=== PATIENT | female | born 1970 | race Caucasian/White ===

== ENCOUNTER 2016-07-03 17:14 | Emergency (ER) | payer MEDICARE, OTHER ==
[2016-07-03] MEDS ORDERED: SODIUM CHLORIDE 0.9% 1,000 ML IV ONE ×2 (17:39→18:27)
== END 2016-07-03 21:48 | disposition home or self-care (01) ==
DX: E10.43 Type 1 diabetes mellitus with diabetic autonomic (poly)neuropathy (principal); K31.84 Gastroparesis; Z79.4 Long term (current) use of insulin; E86.0 Dehydration; R91.8 Other nonspecific abnormal finding of lung field; R41.82 Altered mental status, unspecified; Z86.73 Personal history of transient ischemic attack (TIA), and cerebral infarction without residual deficits; I48.91 Unspecified atrial fibrillation; Z79.82 Long term (current) use of aspirin
CPT/HCPCS: 36415; 70450; 71020; 80053; 80306; 80307; 81003; 83690; 85025; 96360; 96361; 99284; G0480

== ENCOUNTER 2017-01-01 14:09 | Outpatient (CLI) | payer MEDICARE, OTHER ==
[2017-01-02] MEDS ORDERED: IOPAMIDOL-300 50 ML VIAL PO ONE (17:12)
== END 2017-01-01 14:10 | disposition critical access hospital (66) ==
LOC: EMS 14:09
PROVIDERS: ATTEND Surgery
DX: R53.83 Other fatigue (principal)
CPT/HCPCS: A0425; A0429

== ENCOUNTER 2017-01-01 14:23 | Inpatient (IN) | payer MEDICARE, OTHER ==
[2017-01-01] MEDS ORDERED: SODIUM CHLORIDE 0.9% 1,000 ML IV ONE ×4 (14:44→15:25)
--- NOTE | 2017-01-01 14:47 | ED Physician Documentation ---
History of Present Illness - Stated complaint Stated Complaint: COUGHING BLOOD - Chief complaint Chief Complaint: Resp - History obtained from History obtained from: Patient, Family, EMS - History of Present Illness Timing: How many weeks ago (3) Pain level max: 0 Pain level now: 0 Improved by: nothing Worsened by: nothing - Additonal information Additional information: Patient is a 46-year-old female who presents to the emergency department with 3 weeks of cough, subjective fevers. States that last night she began to cough up a small amount of blood at home. This is scant, dark. She also states that her stools were orange in color. States has had mild diarrhea. Blood sugars have been poorly controlled with blood glucose levels around 350. Her daughter states that she has been sleeping more than usual. Review of Systems Ten Systems: 10 systems reviewed and negative Constitutional: reports: Fever, Chills Ears: denies: Ear pain Nose: denies: Rhinorrhea / runny nose, Congestion Throat: denies: Sore throat Cardiac: denies: Chest pain / pressure Respiratory: reports: Cough. denies: Wheezing GI: denies: Nausea, Vomiting, Hematemesis, Bloody / black stool Skin: denies: Rash Musculoskeletal: denies: Neck pain, Back pain Neurologic: denies: Focal weakness, Numbness, Headache PD PAST MEDICAL HISTORY - Past Medical History Past Medical History: Yes Cardiovascular: Atrial fibrillation Respiratory: None Neuro: TIA Endocrine/Autoimmune: Type 1 diabetes GI: GERD, Ulcers, Other INVESTMENT BANKER: None : None HEENT: None Psych: Depression, Anxiety, Panic attacks, Post traumatic stress disorder Musculoskeletal: None Derm: None - Past Surgical History Past Surgical History: Yes General: Cholecystectomy, Appendectomy Ortho: Carpal Tunnel surgery /INVESTMENT BANKER: Hysterectomy, Oophrectomy Cardiovascular: Cardiac catheterization HEENT: Tonsil/Adenoidectomy - Present Medications Home Medications: Ambulatory Orders Medication Instructions Recorded Confirmed Insulin Aspart [Novolog] 10 - 15 unit SQ QID PRN 10/26/12 01/01/17 Insulin Glargine [Lantus] 18 unit SUBQ QAM 12/09/12 01/01/17 Estradiol [Divigel] 2 mg ORAL DAILY 10/10/13 01/01/17 FLUoxetine [PROzac] 40 mg PO QPM 10/10/13 01/01/17 Aspirin 81 tab PO DAILY 03/27/16 01/01/17 oxyCODONE [Roxicodone] 1 tab TID 07/03/16 01/01/17 - Allergies Allergies/Adverse Reactions: Allergies Allergy/AdvReac Type Severity Reaction Status Date / Time acetaminophen [From Tylenol] Allergy Intermediate Emesis Verified 01/01/17 14:36 iodine AdvReac Severe passed out Verified 01/01/17 14:36 simvastatin [From Zocor] AdvReac Severe bone Verified 01/01/17 14:36 hurting - Social History Does the pt smoke?: No Smoking Status: Never smoker Does the pt drink ETOH?: No Does the pt have substance abuse?: No - Immunizations Immunizations are current?: No Immunizations: Other immun not current - POLST Patient has POLST: No PD ED PE NORMAL - Vitals Vital signs reviewed: Yes - General General: Alert and oriented X 3, No acute distress - HEENT HEENT: Moist mucous membranes - Neck Neck: Supple, no meningeal sign - Cardiac Cardiac: RRR, Strong equal pulses - Respiratory Respiratory: No respiratory distress, Clear bilaterally - Abdomen Abdomen: Soft, Non tender, Non distended - Rectal Rectal: Other (normal rectal exam. hemoccult negative. Verona Dyson RN present) - Derm Derm: Warm and dry, No rash - Neuro Neuro: Alert and oriented X 3 - Psych Psych: Normal mood, Normal affect Results - Vitals Vitals: Vital Signs - 24 hr 01/01/17 01/01/17 01/01/17 14:25 14:30 14:32 Temperature 37.7 C H Heart Rate 113 H 117 H 111 H Respiratory 24 26 H 23 Rate Blood Pressure 130/83 H O2 Saturation 95 88 L 92 01/01/17 01/01/17 01/01/17 15:00 15:01 15:02 Temperature Heart Rate 108 H 114 H Respiratory 20 22 24 Rate Blood Pressure O2 Saturation 1 L 89 L 92 01/01/17 01/01/17 01/01/17 16:30 18:24 19:15 Temperature Heart Rate 111 H 115 H 111 H Respiratory 28 H 22 Rate Blood Pressure 151/60 H O2 Saturation 96 94 Oxygen O2 Source Nasal cannula Oxygen Flow Rate 2 - Labs Labs: Laboratory Tests 01/01/17 01/01/17 01/01/17 15:30 15:30 15:30 WBC 19.2 H RBC 3.74 L Hgb 10.9 L Hct 32.7 L MCV 87.6 MCH 29.1 MCHC 33.2 RDW 14.7 Plt Count 223 MPV 8.4 Neut # 17.8 H Lymph # 0.8 L [place] # 0.5 Eos # 0.0 Baso # 0.1 Absolute Nucleated RBC 0.00 Nucleated RBCs 0.0 Manual Slide Review Indicated Platelet Estimate NORMAL (130-450,000) Platelet Morphology NORMAL APPEARANCE RBC Morph Micro Appear NORMAL APPEARANCE Sodium 125 L Potassium 4.0 Chloride 88 L Carbon Dioxide 24 Anion Gap 13.0 BUN 13 Creatinine 0.9 Estimated GFR (MDRD) 67 L Glucose 358 H Glycated Hemoglobin Estim Average Glucose Lactic Acid 1.7 Calcium 8.6 Total Bilirubin 4.6 H AST 35 ALT 44 Alkaline Phosphatase 197 H Total Protein 6.5 L Albumin 2.4 L Globulin 4.1 Albumin/Globulin Ratio 0.6 L Lipase < 10 L Urine Color Urine Clarity Urine pH Ur Specific [place] Urine Protein Urine Glucose (UA) Urine Ketones Urine Occult Blood Urine Nitrite Urine Bilirubin Urine Urobilinogen Ur Leukocyte Esterase Urine RBC Urine WBC Ur Squamous Epith Cells Urine Bacteria Ur Microscopic Review Urine Culture Comments 01/01/17 01/01/17 15:30 17:00 WBC RBC Hgb Hct MCV MCH MCHC RDW Plt Count MPV Neut # Lymph # [place] # Eos # Baso # Absolute Nucleated RBC Nucleated RBCs Manual Slide Review Platelet Estimate Platelet Morphology RBC Morph Micro Appear Sodium Potassium Chloride Carbon Dioxide Anion Gap BUN Creatinine Estimated GFR (MDRD) Glucose Glycated Hemoglobin 9.2 H Estim Average Glucose 217 H Lactic Acid Calcium Total Bilirubin AST ALT Alkaline Phosphatase Total Protein Albumin Globulin Albumin/Globulin Ratio Lipase Urine Color YELLOW Urine Clarity CLEAR Urine pH 5.5 Ur Specific [place] 1.015 Urine Protein 30 H Urine Glucose (UA) >=1000 H Urine Ketones >=80 H Urine Occult Blood SMALL H Urine Nitrite NEGATIVE Urine Bilirubin MODERATE H Urine Urobilinogen 1 (NORMAL) Ur Leukocyte Esterase NEGATIVE Urine RBC 0-5 Urine WBC 0-3 Ur Squamous Epith Cells FEW Squamous Urine Bacteria Rare Ur Microscopic Review INDICATED Urine Culture Comments NOT INDICATED - Rads (name of study) cxr Radiology: Prelim report reviewed, EMP read contemporaneously, See rad report ( Lung volumes and heart size are within normal limits. There is dense opacity within the right chest. This is suspicious for pneumonia. Interval follow-up film post treatment is recommended to demonstrate resolution of this process and to exclude underlying pathology. No evidence of pneumothorax. ) PD MEDICAL DECISION MAKING - ED course Complexity details: reviewed results, re-evaluated patient, considered differential, d/w patient, d/w it web development consultant ED course: Patient is a 46-year-old female who presents to the emergency department what appears to be pneumonia on the right side of her chest. Started on IV antibiotics, IV fluids given. Does not appear septic at this time. She is hypoxic and placed on supplemental oxygen. There was difficulty establishing IV access, therefore I placed a 20-gauge IV in the left AC under ultrasound guidance. Flushes well and withdraws blood easily. Blood cultures drawn. Discussed the case with the hospitalist who accepts ([id number]). This document was made in part using voice recognition software. While efforts are made to proofread this document, sound alike and grammatical errors may occur.q Departure - Departure Disposition: 66 [facility] DC/Xfer Clinical Impression: Hypoxia Pneumonia Qualifiers: Pneumonia type: due to unspecified organism Laterality: right Lung location: unspecified part of lung Qualified Code(s): J18.9 - Pneumonia, unspecified organism Condition: Stable Discharge Date/Time: 01/01/17 20:58
--- NOTE | 2017-01-01 15:15 | XRAY Preliminary Report ---
Exam: XR Chest 1 View IMPRESSION: 1. Lung volumes and heart size are within normal limits. 2. There is dense opacity within the right chest. This is suspicious for pneumonia. Interval follow-u p film post treatment is recommended to demonstrate resolution of this process and to exclude underly ing pathology. 3. No evidence of pneumothorax. [facility] SITE ID: [id number]
--- NOTE | 2017-01-01 15:18 | XRAY Report ---
EXAM: CHEST RADIOGRAPHY EXAM DATE: 01/01/2017 03:04 PM. CLINICAL HISTORY: Cough, fever. COMPARISON: 12/02/2015. TECHNIQUE: 1 view. FINDINGS: Lungs/Pleura: There is dense opacity within the right chest. No evidence of large effusion. No pneumo thorax. The left lung is relatively clear. Mediastinum: Within exam limitations, cardiomediastinal contour is normal. Other: None. IMPRESSION: 1. Lung volumes and heart size are within normal limits. 2. There is dense opacity within the right chest. This is suspicious for pneumonia. Interval follow-u p film post treatment is recommended to demonstrate resolution of this process and to exclude underly ing pathology. 3. No evidence of pneumothorax. [facility] Referring Provider Line: [phone] SITE ID: [id number]
[2017-01-01 15:36] LABS: BASOPHILS # (AUTO) 0.1 10^3/uL (0.0-0.1); BASOPHILS % (AUTO) 0.3 %; HCT - HEMATOCRIT 32.7 % (37.0-47.0); HGB - HEMOGLOBIN 10.9 g/dL (12.0-16.0); LYMPHOCYTES # (AUTO) 0.8 10^3/uL (1.5-3.5); LYMPHOCYTES % (AUTO) 4.2 %; MEAN CORPUSCULAR HEMOGLOBIN 29.1 pg (27.0-31.0); MEAN CORPUSCULAR HGB CONC 33.2 g/dL (32.0-36.0); MEAN CORPUSCULAR VOLUME 87.6 fL (81.0-99.0); MEAN PLATELET VOLUME 8.4 fL (7.9-10.8); MONOCYTES # (AUTO) 0.5 10^3/uL (0.0-1.0); MONOCYTES % (AUTO) 2.9 %; NEUTROPHILS # (AUTO) 17.8 10^3/uL (1.5-6.6); NEUTROPHILS % (AUTO) 92.6 %; RED BLOOD COUNT 3.74 10^6/uL (4.20-5.40); RED CELL DISTRIBUTION WIDTH 14.7 % (12.0-15.0); UNCORRECTED WHITE BLOOD COUNT 19.2 x10^3/uL; WHITE BLOOD COUNT 19.2 x10^3/uL (4.8-10.8)
[2017-01-01] MEDS ORDERED: cefTRIAXone 1 GM in SODIUM CHLORIDE 0.9% MINIBAG 100 ML IV STA (15:55)
[2017-01-01] MEDS ORDERED: AZITHROMYCIN INJ 500 MG in SODIUM CHLORIDE 0.9% 250 ML IV STA (15:55)
[2017-01-01 16:08] LABS: PLATELET ESTIMATE, MANUAL NORMAL (130-450,000) (NORMAL); PLATELET MORPHOLOGY NORMAL APPEARANCE (NORMAL)
[2017-01-01 16:17] LABS: ALBUMIN/GLOBULIN RATIO 0.6 (1.0-2.2); BILIRUBIN,TOTAL 4.6 mg/dL (0.2-1.0); BUN - BLOOD UREA NITROGEN 13 mg/dL (6-20); CALCIUM 8.6 mg/dL (8.5-10.3); CARBON DIOXIDE - CO2 24 mmol/L (21-32); CHLORIDE 88 mmol/L (101-111); CREATININE 0.9 mg/dL (0.4-1.0); GFR - MDRD 67 (>89); GLUCOSE 358 mg/dL (70-100); LIPASE < 10 U/L (22-51); SODIUM 125 mmol/L (135-145); TOTAL PROTEIN 6.5 g/dL (6.7-8.2)
[2017-01-01] MEDS ORDERED: cefTRIAXone 1 GM VIAL ONE (16:31)
[2017-01-01 17:15] LABS: PH,URINE 5.5 PH (5.0-7.5)
[2017-01-01 17:23] LABS: BILIRUBIN,URINE MODERATE (NEGATIVE); UA w/ MICROSCOPIC CHARGE YES
[2017-01-01 17:29] LABS: UR CULTURE IF IND NOT INDICATED; WBC,URINE 0-3 /HPF (0-5)
[2017-01-01] MEDS ORDERED: INSULIN REGULAR HUMAN 100 UNIT/1 ML 10 ML MDV SUBQ STA (18:31)
[2017-01-01] MEDS ORDERED: ALBUTEROL NEB 2.5 MG/3 ML INH STA (18:32)
[2017-01-01] MEDS ORDERED: INSULIN REGULAR HUMAN 100 UNIT/1 ML 10 ML MDV ONE (18:54)
[2017-01-01] MEDS ORDERED: IPRATROPIUM/ALBUTEROL 3 ML NEB INH ONE (19:22)
[2017-01-01] MEDS ORDERED: ACETAMINOPHEN 325 MG TABLET PO PRN (19:37)
[2017-01-01] MEDS ORDERED: ZOLPIDEM 5 MG TABLET PO PRN (19:37)
[2017-01-01] MEDS ORDERED: PROCHLORPERAZINE 10 MG/2 ML VIAL IVP PRN (19:37)
[2017-01-01] MEDS ORDERED: SODIUM CHLORIDE FLUSH 0.9% 10 ML SYRINGE IVP PRN (19:37)
[2017-01-01] MEDS ORDERED: ONDANSETRON 4 MG/2 ML VIAL IVP PRN (19:37)
[2017-01-01] MEDS ORDERED: ALBUTEROL NEB 2.5 MG/3 ML INH ONE (19:51)
[2017-01-01 20:19] LABS: HEMOGLOBIN A1C 0.88 g/dL
[2017-01-01] MEDS ORDERED: SODIUM CHLORIDE FLUSH 0.9% 10 ML SYRINGE IVP ONE (21:30)
[2017-01-01] MEDS: SODIUM CHLORIDE FLUSH 0.9% 10 ML SYRINGE IVP SCH (21:40)
[2017-01-01] MEDS: SODIUM CHLORIDE 0.9% 1,000 ML IV SCH (21:40)
[2017-01-01] MEDS ORDERED: INSULIN ASPART 300 UNIT/3 ML PEN SUBQ SCH (22:00)
[2017-01-01] MEDS: INSULIN ASPART 300 UNIT/3 ML PEN SUBQ SCH (22:06)
[2017-01-01] MEDS: INSULIN GLARGINE 300 UNIT/3 ML PEN SUBQ SCH (22:11)
[2017-01-01] MEDS: FLUoxetine 10 MG CAPSULE PO SCH (23:54)
[2017-01-02] MEDS: guaiFENesin/CODEINE 5 ML UDC PO PRN ×4 (05:11→20:49)
[2017-01-02] MEDS: SODIUM CHLORIDE FLUSH 0.9% 10 ML SYRINGE IVP SCH ×3 (05:20→22:00)
--- NOTE | 2017-01-02 05:27 | HISTORY & PHYSICAL EXAMINATION ---
Chief Complaint - Chief Complaint Chief Complaint: Generalized weakness and lethargy History of Present Illness - Admitted From Admitted From:: Emergency Department - History Obtained From Records Reviewed: Yes History obtained from: Patient Exam Limitations: None - History of Present Illness HPI Comment/Other: Patient is a very pleasant 46 year old female with past medical history of diabetes, paroxysmal atrial fibrillation not on anticoagulation, depression with history of suicide attempts, PTSD, anxiety, morbid obesity, fatty liver disease, hyperlipidemia, gastric ulcer disease, migraines and chronic abdominal pain who presents to the emergency department with a chief complaints of generalized weakness and lethargy which has been worsening of the last 3 days. The patient states she was in her normal state of health until a week ago when she states that she saw her PCP who changed her prozac to another antidepressant. She states that she was told with this new medication she could get flu like symptoms. Over the next few days she began to develop malaise, achy muscles, joints and a cough. She thought that this was all due to the change in her medication. She states that over the last 3 days she has began to have increasing cough which keeps her up all night and shortness of breath with exertion. She states the last 2 days she has become so weak that she has not left her bed. She states that 2 days ago when she got out of bed to go to the bathroom she fell on the floor and her daughter had to help her up. She states that today her daughter was concerned as she was very lethargic and seemed confused. The patients daughter called the patients who is away at work and the patients told the patient to go to the ER. The patient also states she has had a decreased appetite and not eaten at all for the last 2 days. She states she had a fever up to 101 and she has been experiencing chills the last few days. She denies any chest pain. She denies any headache, blurred vision, runny nose, she admits to a sore throat, she denies any abdominal pain, nausea or vomiting. She denies any urinary symptoms. She also denies any focal neurological deficits. On presentation to the Emergency Department the patient looked quite ill. She was tachycardic, tachypnic and had a low grade fever or 37.7. Her WBC was elevated to 19.2 and she had a sodium of 125 with an elevated glucose and an elevated bilirubin of 4.6 with an elevated Alk Phos. The patient had a bad cough and her lungs sounded bad so she underwent a chest xray which revealed a dense opacity in the right chest suggestive of a pneumonia. Patient was admitted to the hospital for sepsis with community acquired pneumonia. Review of Systems - Other Findings Other Findings: A comprehensive review of systems was performed the pertinent positive and negatives are stated above in the HPI and the remainder of the review of systems is negative. History - Past Medical History Cardiovascular: reports: Atrial fibrillation Respiratory: reports: None Neuro: reports: TIA Endocrine/Autoimmune: reports: Type 1 diabetes GI: reports: GERD, Ulcers, Other PANTOMIMIST: reports: None : reports: None HEENT: reports: None Psych: reports: Depression, Anxiety, Panic attacks, Post traumatic stress disorder Musculoskeletal: reports: None Derm: reports: None MRSA Hx?: No Other Past Medical History: 1. Depression with history of suicide attempts in and 06/2013. 2. PTSD. 3. Anxiety. 4. Morbid Obesity. 5. Type 2 diabetes. 6. Fatty Liver Disease. 7. Hyperlipidemia. 8. Remote hisotry of gastric ulcer disease. 9. 2 TIAs. 10. Hisotry of Atrial Fibrillation. 11. Chronic Abdominal Pain. 12. Migraine Headaches. 13. Carpal Tunnel Syndrome and release surgery. 14. Tonsillectomy. 15. Cholecystectomy. 16. Appendectomy - Past Surgical History General: reports: Cholecystectomy, Appendectomy Ortho: reports: Carpal Tunnel surgery /PANTOMIMIST: reports: Hysterectomy, Oophrectomy Cardiovascular: reports: Cardiac catheterization HEENT: reports: Tonsil/Adenoidectomy - Family & Social History Family History Comment/Other: No family history of diabetes, coronary artery disease or cancer. The patient does have some family history of psychiatric disease. Living arrangement: At home Living Situation: With spouse/s.o. Social History Notes: The patient is . She is originally from [place], [place]. Her and her live together in a home. She is very independent. Her was formerly in the [employer]. She has retired. She has 2 kids one son and one daughter. She does not smoke, she rarely drinks alcohol and she does not use any illict drugs. - Substance History Use: Uses substance without health or social issues: NONE Abuse: Recurrent use of substance despite neg consequences: NONE Dependence: Experiences withdrawal or developed tolerances: NONE - POLST Patient has POLST: No POLST Status: Full Code Meds/Allgy - Home Medications Home Medications: Ambulatory Orders Medication Instructions Recorded Confirmed Insulin Aspart [Novolog] 10 - 15 unit SQ QID PRN 10/26/12 01/01/17 Insulin Glargine [Lantus] 18 unit SUBQ QAM 12/09/12 01/01/17 Estradiol [Divigel] 2 mg ORAL DAILY 10/10/13 01/01/17 FLUoxetine [PROzac] 40 mg PO QPM 10/10/13 01/01/17 Aspirin 81 tab PO DAILY 03/27/16 01/01/17 oxyCODONE [Roxicodone] 1 tab TID 07/03/16 01/01/17 - Allergies Allergies/Adverse Reactions: Allergies Allergy/AdvReac Type Severity Reaction Status Date / Time acetaminophen [From Tylenol] Allergy Intermediate Emesis Verified 01/01/17 14:36 iodine AdvReac Severe passed out Verified 01/01/17 14:36 simvastatin [From Zocor] AdvReac Severe bone Verified 01/01/17 14:36 hurting Exam - Vital Signs Reviewed Vital Signs: Yes Vital Signs: Vital Signs x48h Temp Pulse Resp BP Pulse Ox 01/02/17 00:46 36.8 C 97 16 126/77 97 - Physical Exam General Appearance: positive: Alert, Mild distress (Coughing a lot) Eyes Bilateral: positive: Normal inspection, PERRL, EOMI, No lid inflammation, Conjunctivae nml, No scleral icterus ENT: positive: ENT inspection nml, Pharynx nml, Dry mucous membranes. negative : Purulent nasal drainage, Pharyngeal erythema, Oral lesions Neck: positive: Nml inspection, Thyroid nml, No JVD, Trachea midline. negative : Thyromegaly, Lymphadenopathy (R), Lymphadenopathy (L), Carotid bruit, Tracheal deviation Respiratory: positive: Chest non-tender, No respiratory distress, Rales (bases) , Rhonchi (right lung), Other (Not using accessory muscles of breath but lungs sound junky) Cardiovascular: positive: No murmur, No gallop, Tachycardia Peripheral Pulses: positive: 2+ Abdomen: positive: No organomegaly, Nml bowel sounds, Tenderness (Mild in the epigatric area), Other (Obese). negative: Guarding, Rebound, Bruit Back: positive: Nml inspection. negative: CVA tenderness (R), CVA tenderness (L ) Skin: positive: Color nml, No rash, Warm Extremities: positive: Non-tender, Full ROM, Nml appearance, No pedal edema Neurologic/Psychiatric: positive: Oriented x3, CN's nml (2-12), Motor nml, Sensation nml Conclusion/Plan - Problem List (1) Sepsis Conclusion/Plan: Patient presented with lethargy and generalized weakness. On presentation patient was ill appearing with low grade fever and admitted to [place] [id number] at home with chills. She was tachycardic on presentation and tachypnic. She had a leukocytosis of 19K she was found to have a right lung pneumonia. Source appears to be pneumonia but she does have some abdominal tenderness and has had a poor appetite. She had an elevated bili of 4 with elevated alk phos concerning for possible gallstone, liver disease or cholecystitis Plan: IV ceftriaxone and IV azithromycin to treat CAP IVFs Blood cultures Monitor closely Abdominal ultrasound (2) CAP (community acquired pneumonia) Conclusion/Plan: Patient presented with sepsis, cough, weakness, shortness of breath and fevers. CXR showed a dense right lung opacity concerning for pneumonia especially given clinical picture Plan: IV Ceftriaxone and IV azithromycin IVFs Blood cultures Robitussin O2 as needed Repeat CXR after treatment complete (3) Elevated bilirubin Conclusion/Plan: Patient has history of fatty liver disease and presented with generalized weakness, sepsis and poor appetite. Patient had mild abdominal tenderness and bili was elevated at over 4 and Alk phos elevated Concerning for possible gallstone, cholecystitits or worsening liver damage from fatty liver Plan: Repeat LFTs Abdominal ultrasound IVFs (4) Diabetes Conclusion/Plan: Patient with long standing diabetes presented with uncontrolled blood glucose of 358 HbA1C is 9.2 Likely worse secondary to infection Plan: Continue home dose of lantus Start on sliding scale with meals Diabetic diet Monitor blood glucose closely Qualifiers: Diabetes mellitus type: type 2 Diabetes mellitus chcf insulin use: with chcf use (5) Hyponatremia Conclusion/Plan: Na was 125 on presentation Appears to be hypovolemic hyponatremia but could be some component of SIADH given pneumonia Give IVFs Monitor Na (6) Hypertension Conclusion/Plan: Well controlled Continue home medication Qualifiers: Hypertension type: essential hypertension Qualified Code(s): I10 - Essential (primary) hypertension (7) Depression Conclusion/Plan: Mood is stable History of suicide attempts Continue home meds Monitor Qualifiers: Depression Type: major depressive disorder (8) Prophylactic use of low molecular weight heparin for venous thromboembolism Conclusion/Plan: Place on lovenox - Lab Results Lab results reviewed: Yes Fish Bones: 01/01/17 15:30 01/01/17 15:30 Other Lab Results: Laboratory Results WBC 18.6 x10^3/uL (4.8-10.8) H 01/02/17 05:23 RBC 3.42 10^6/uL (4.20-5.40) L 01/02/17 05:23 Hgb 10.0 g/dL (12.0-16.0) L 01/02/17 05:23 Hct 30.2 % (37.0-47.0) L 01/02/17 05:23 MCV 88.5 fL (81.0-99.0) 01/02/17 05:23 MCH 29.3 pg (27.0-31.0) 01/02/17 05:23 MCHC 33.2 g/dL (32.0-36.0) 01/02/17 05:23 RDW 14.6 % (12.0-15.0) 01/02/17 05:23 Plt Count 233 10^3/uL (130-450) 01/02/17 05:23 MPV 8.2 fL (7.9-10.8) 01/02/17 05:23 Neut # 16.8 10^3/uL (1.5-6.6) H 01/02/17 05:23 Lymph # 1.0 10^3/uL (1.5-3.5) L 01/02/17 05:23 [place] # 0.8 10^3/uL (0.0-1.0) 01/02/17 05:23 Eos # 0.0 10^3/uL (0.0-0.7) 01/02/17 05:23 Baso # 0.1 10^3/uL (0.0-0.1) 01/02/17 05:23 Absolute Nucleated RBC 0.01 x10^3/uL 01/02/17 05:23 Nucleated RBCs 0.1 /100WBC 01/02/17 05:23 Manual Slide Review Indicated 01/01/17 15:30 Platelet Estimate NORMAL (130-450,000) (NORMAL) 01/01/17 15:30 Platelet Morphology NORMAL APPEARANCE (NORMAL) 01/01/17 15:30 RBC Morph Micro Appear NORMAL APPEARANCE (NORMAL) 01/01/17 15:30 Sodium 125 mmol/L (135-145) L 01/01/17 15:30 Potassium 4.0 mmol/L (3.5-5.0) 01/01/17 15:30 Chloride 88 mmol/L (101-111) L 01/01/17 15:30 Carbon Dioxide 24 mmol/L (21-32) 01/01/17 15:30 Anion Gap 13.0 (6-13) 01/01/17 15:30 BUN 13 mg/dL (6-20) 01/01/17 15:30 Creatinine 0.9 mg/dL (0.4-1.0) 01/01/17 15:30 Estimated GFR (MDRD) 67 (>89) L 01/01/17 15:30 Glucose 358 mg/dL (70-100) H 01/01/17 15:30 Glycated Hemoglobin 9.2 % (4.6-6.2) H 01/01/17 15:30 Estim Average Glucose 217 (70-100) H 01/01/17 15:30 Lactic Acid 1.7 mmol/L (0.5-2.2) 01/01/17 15:30 Calcium 8.6 mg/dL (8.5-10.3) 01/01/17 15:30 Total Bilirubin 4.6 mg/dL (0.2-1.0) H 01/01/17 15:30 AST 35 IU/L (10-42) 01/01/17 15:30 ALT 44 IU/L (10-60) 01/01/17 15:30 Alkaline Phosphatase 197 IU/L (42-121) H 01/01/17 15:30 Total Protein 6.5 g/dL (6.7-8.2) L 01/01/17 15:30 Albumin 2.4 g/dL (3.2-5.5) L 01/01/17 15:30 Globulin 4.1 g/dL (2.1-4.2) 01/01/17 15:30 Albumin/Globulin Ratio 0.6 (1.0-2.2) L 01/01/17 15:30 Lipase < 10 U/L (22-51) L 01/01/17 15:30 Urine Color YELLOW 01/01/17 17:00 Urine Clarity CLEAR (CLEAR) 01/01/17 17:00 Urine pH 5.5 PH (5.0-7.5) 01/01/17 17:00 Ur Specific [place] 1.015 (1.002-1.030) 01/01/17 17:00 Urine Protein 30 mg/dL (NEGATIVE) H 01/01/17 17:00 Urine Glucose (UA) >=1000 mg/dL (NEGATIVE) H 01/01/17 17:00 Urine Ketones >=80 mg/dL (NEGATIVE) H 01/01/17 17:00 Urine Occult Blood SMALL (NEGATIVE) H 01/01/17 17:00 Urine Nitrite NEGATIVE (NEGATIVE) 01/01/17 17:00 Urine Bilirubin MODERATE (NEGATIVE) H 01/01/17 17:00 Urine Urobilinogen 1 (NORMAL) E.U./dL (NORMAL) 01/01/17 17:00 Ur Leukocyte Esterase NEGATIVE (NEGATIVE) 01/01/17 17:00 Urine RBC 0-5 /HPF (0-5) 01/01/17 17:00 Urine WBC 0-3 /HPF (0-5) 01/01/17 17:00 Ur Squamous Epith Cells FEW Squamous (<= Few) 01/01/17 17:00 Urine Bacteria Rare /HPF (None Seen) 01/01/17 17:00 Ur Microscopic Review INDICATED 01/01/17 17:00 Urine Culture Comments NOT INDICATED 01/01/17 17:00 - Diagnostic Imaging Results Diagnostic Imaging Results: positive: Final report reviewed Diagnostic Imaging Results Comments: Chest X Ray: Dense opacity with the right chest. Suspicious for pneumonia. Follow up film post treatment is recommended. - EKG Results EKG Interpreted Independently: Yes Issues/Core Measures - Anticipated LOS Anticipated Stay Length: 2 or more midnights - DVT/VTE - Prophylaxis VTE/DVT Prophylaxis med ordered at admit?: Yes
[2017-01-02 05:36] LABS: BASOPHILS # (AUTO) 0.1 10^3/uL (0.0-0.1); BASOPHILS % (AUTO) 0.5 %; EOSINOPHILS % (AUTO) 0.1 %; HCT - HEMATOCRIT 30.2 % (37.0-47.0); LYMPHOCYTES % (AUTO) 5.4 %; MEAN CORPUSCULAR HEMOGLOBIN 29.3 pg (27.0-31.0); MEAN CORPUSCULAR HGB CONC 33.2 g/dL (32.0-36.0); MEAN CORPUSCULAR VOLUME 88.5 fL (81.0-99.0); MEAN PLATELET VOLUME 8.2 fL (7.9-10.8); MONOCYTES # (AUTO) 0.8 10^3/uL (0.0-1.0); NEUTROPHILS # (AUTO) 16.8 10^3/uL (1.5-6.6); NUCLEATED RED BLOOD CELLS AUTO 0.1 /100WBC; RED BLOOD COUNT 3.42 10^6/uL (4.20-5.40); RED CELL DISTRIBUTION WIDTH 14.6 % (12.0-15.0); UNCORRECTED WHITE BLOOD COUNT 18.6 x10^3/uL; WHITE BLOOD COUNT 18.6 x10^3/uL (4.8-10.8)
[2017-01-02 05:45] LABS: CALCIUM 8.3 mg/dL (8.5-10.3); CREATININE 0.8 mg/dL (0.4-1.0); POTASSIUM 3.6 mmol/L (3.5-5.0)
[2017-01-02] MEDS: PANTOPRAZOLE 40 MG TABLET PO SCH (06:21)
[2017-01-02 06:45] LABS: BILIRUBIN,DIRECT 1.4 mg/dL (0.1-0.5); BILIRUBIN,TOTAL 2.2 mg/dL (0.2-1.0); TOTAL PROTEIN 6.4 g/dL (6.7-8.2)
--- NOTE | 2017-01-02 07:43 | PROVIDER PROGRESS NOTE ---
Assessment/Plan - Problem List (1) Autoimmune disease Assessment/Plan: acute on chronic with possible pancreatic, liver or lung disease. patient has elevated ESR rate >140 along with CPR at 50. She has a report of bloody cough and phlegm over several past visits for ER and inpatient. She has rash on abdomen now with severe distention and pain. She is lethargic and with yellowing of skin. MRCP ordered along with trending of liver enzymes, hepatitis panel, autoimmune panel and inflammation markers. continue to keep NPO with respiratory therapy support and adding methyprednisolone IV 125mg TID. continue to monitor blood glucose. (2) Uncontrolled diabetes mellitus secondary to pancreatic insufficiency Assessment/Plan: acute with hyperglycemia and gastroparesis. patient is on zofran and phenergan for nausea and vomiting. continue to monitor blood glucose with sliding scale and will increase lantus to 25units BID and aggressive sliding scale with NPO. Accuchecks Q6 hours while NPO. monitoring pancreatic enzymes (3) CAP (community acquired pneumonia) Assessment/Plan: acute. of right lower lobe. unknown causal organism. continue on Zosyn and Zithromax. patient has both abdominal and chest pain. continue to monitor CBC with daily lab draws. monitor electrolytes with daily lab draw. respiratory therapy support with duonebs and supplemental oxygen NC 2 liters as needed. (4) Acute abdominal pain in right upper quadrant Assessment/Plan: Acute on chronic. Patient has had chronic pain in RUQ for some time. Possible cholelithiasis now with cholecystitis. ultrasound of abdomen is pending. amylase an lipase ordered. * Patient reports history of cholecystectomy; she has significant pain upon palpation to her right upper quadrant where her gallbladder would lie and upon palpation of the left upper quadrant near pancreatic head. It is possible she could have an obstructing stone in her bile duct causing the pain. * Evidence of cholestasis: elevated Alk Phos 209 and total bilirubin 2.2 with AST normal 22, ALT normal 35. (5) Elevated bilirubin Assessment/Plan: acute. patient has an acute tryglyceride pancreatitis. aggressive pain medication and hydration IV. monitor electrolytes, lipase levels and electrolytes. (6) Acute pancreatitis Qualifiers: Pancreatitis type: unspecified pancreatitis type Acute pancreatitis complication: unspecified Qualified Code(s): K85.90 - Acute pancreatitis without necrosis or infection, unspecified Assessment/Plan: acute with hypertriglyceridemia. patients triglycerides were 1130. started on Lopid 600mg po BID. aggressive IVF hydration with NS x 2 then 150ml/hr. Dilaudid IV for pain. start on clear liquids and advance as tolerated. monitor lipase and amylase. monitor electrolytes. zofran for nausea and phenergan IV for vomiting (7) Obesity (BMI 30-39.9) Assessment/Plan: chronic. patient is also a noncompliant insulin dependent diabetic and weight related to improper diet and caloric intake. will need nutrition and diabetic support. * Discussed with patient her normal dietary intake which consists of yogurt and 1/2 banana for breakfast and lunch, no dinner, and a piece of white toast with peanut butter before bed. She drinks water and unsweetened tea; denies soda consumption. She reports "I do not cook." * Albumin level: 2.2 * Dietary consultation ordered. - Current Meds Current Meds: Current Medications Generic Name Dose Route Start Last Admin Trade Name Freq PRN Reason Stop Dose Admin Fluoxetine HCl 40 mg 01/01/17 21:00 01/01/17 23:54 Prozac PO 40 mg QPM AG Administration Guaifenesin/Codeine Phosphate 5 ml 01/01/17 23:09 01/02/17 05:12 Robitussin Ac PO 5 ml Q6HR PRN Administration Cough Sodium Chloride 1,000 mls @ 100 mls/hr 01/01/17 20:00 01/01/17 21:40 Normal Saline 0.9% IV 100 mls/hr .Q10H AG Administration Insulin Aspart 1 - 5 unit 01/01/17 21:00 01/01/17 22:06 Novolog SUBQ Not Given 0800,1200,1700,2100 AG Protocol Insulin Glargine 18 unit 01/01/17 19:45 01/01/17 22:11 Lantus Solostar SUBQ 18 unit DAILY AG Administration Pantoprazole Sodium 40 mg 01/02/17 07:00 01/02/17 06:21 Protonix PO 40 mg QDAC AG Administration Sodium Chloride 10 ml 01/01/17 22:00 01/02/17 05:20 Normal Saline Flush 0.9% IVP Not Given Q8HR AG - Lab Result Lab results reviewed: Yes Fish Bone Diagrams: 01/03/17 08:20 07/29/17 07:21 Other Lab Results: Abnormal Lab Results 01/01/17 01/01/17 01/01/17 15:30 15:30 15:30 WBC 19.2 x10^3/uL H x10^3/uL (4.8-10.8) RBC 3.74 10^6/uL L 10^6/uL (4.20-5.40) Hgb 10.9 g/dL L g/dL (12.0-16.0) Hct 32.7 % L % (37.0-47.0) Neut # 17.8 10^3/uL H 10^3/uL (1.5-6.6) Lymph # 0.8 10^3/uL L 10^3/uL (1.5-3.5) Sodium 125 mmol/L L mmol/L (135-145) Chloride 88 mmol/L L mmol/L (101-111) Estimated GFR (MDRD) 67 L (>89) Glucose 358 mg/dL H mg/dL (70-100) Glycated Hemoglobin 9.2 % H % (4.6-6.2) Estim Average Glucose 217 H (70-100) Calcium Total Bilirubin 4.6 mg/dL H mg/dL (0.2-1.0) Direct Bilirubin Alkaline Phosphatase 197 IU/L H IU/L (42-121) Total Protein 6.5 g/dL L g/dL (6.7-8.2) Albumin 2.4 g/dL L g/dL (3.2-5.5) Albumin/Globulin Ratio 0.6 L (1.0-2.2) Lipase < 10 U/L L U/L (22-51) Urine Protein Urine Glucose (UA) Urine Ketones Urine Occult Blood Urine Bilirubin 01/01/17 01/02/17 01/02/17 17:00 05:23 05:23 WBC 18.6 x10^3/uL H x10^3/uL (4.8-10.8) RBC 3.42 10^6/uL L 10^6/uL (4.20-5.40) Hgb 10.0 g/dL L g/dL (12.0-16.0) Hct 30.2 % L % (37.0-47.0) Neut # 16.8 10^3/uL H 10^3/uL (1.5-6.6) Lymph # 1.0 10^3/uL L 10^3/uL (1.5-3.5) Sodium 131 mmol/L L mmol/L (135-145) Chloride 93 mmol/L L mmol/L (101-111) Estimated GFR (MDRD) 77 L (>89) Glucose 312 mg/dL H mg/dL (70-100) Glycated Hemoglobin Estim Average Glucose Calcium 8.3 mg/dL L mg/dL (8.5-10.3) Total Bilirubin Direct Bilirubin Alkaline Phosphatase Total Protein Albumin Albumin/Globulin Ratio Lipase Urine Protein 30 mg/dL H mg/dL (NEGATIVE) Urine Glucose (UA) >=1000 mg/dL H mg/dL (NEGATIVE) Urine Ketones >=80 mg/dL H mg/dL (NEGATIVE) Urine Occult Blood SMALL H (NEGATIVE) Urine Bilirubin MODERATE H (NEGATIVE) 01/02/17 05:23 WBC RBC Hgb Hct Neut # Lymph # Sodium Chloride Estimated GFR (MDRD) Glucose Glycated Hemoglobin Estim Average Glucose Calcium Total Bilirubin 2.2 mg/dL H mg/dL (0.2-1.0) Direct Bilirubin 1.4 mg/dL H mg/dL (0.1-0.5) Alkaline Phosphatase 209 IU/L H IU/L (42-121) Total Protein 6.4 g/dL L g/dL (6.7-8.2) Albumin 2.2 g/dL L g/dL (3.2-5.5) Albumin/Globulin Ratio Lipase Urine Protein Urine Glucose (UA) Urine Ketones Urine Occult Blood Urine Bilirubin - EKG Results EKG Interpreted Independently: No EKG Comparison: Unchanged from prior EKG - Diagnostic Imaging Results Diagnostic Imaging Results: Prelim report reviewed Diagnostic Imaging Results Comments: Patient CT report showed inflammation around the body and tail fo the pancreas. no bowel dilitation or free air in the pelvis - Additional Planning Condition/Complexity: Stable My Orders: My Active Orders 01/02/17 08:00 Piperacillin/Tazobactam [Zosyn] 4.5 gm Sodium Chloride 0.9% Minibag [Normal Saline 0.9% Minibag] 100 ml IV Q6H Consult/Specialty: Surgery Plan Discussed with:: Patient, Case Management Time Spent: 31-60 minutes Subjective - Subjective Patient Reports: Abdominal Pain, Back Pain, Nausea, Pain Nursing Reports: Cough, Nausea, Pain (no chest pain. increasing pain to leftupper quadrant and mid epigastric region. no shortness of breath) Objective Vital Signs: Vital Signs - 24 hr 01/01/17 01/02/17 21:00 00:46 Temperature 36.9 C 36.8 C Heart Rate [ 109 H 97 Brachial] Respiratory 16 16 Rate Blood Pressure 127/60 126/77 [Right Brachial artery] O2 Saturation 95 97 Oxygen O2 Source Nasal cannula I&O (Last 24 Hrs): Intake and Output Totals x24h 12/31/16 01/01/17 01/02/17 23:59 23:59 23:59 Intake Total 240 Output Total 781 Balance 240 -781 General: Alert, Oriented x3, Cooperative HEENT: PERRLA, EOMI Neck: Supple, No JVD Lymphatic: no adenopathy Neuro: Alert, Disoriented Cardiovascular: Regular rate, Normal S1, Normal S2 Respiratory: Chest non-tender, No respiratory distress, Rales (right upper and lower lobe) Abdomen: Soft, No hepatospenomegaly, No masses, Other (tenderness to right and left upper quadrant) Extremities: No clubbing, No cyanosis, No tenderness/swelling Skin: No rashes, No breakdown, No significant lesion - Results Results: Laboratory Results WBC 18.6 x10^3/uL (4.8-10.8) H 01/02/17 05:23 RBC 3.42 10^6/uL (4.20-5.40) L 01/02/17 05:23 Hgb 10.0 g/dL (12.0-16.0) L 01/02/17 05:23 Hct 30.2 % (37.0-47.0) L 01/02/17 05:23 MCV 88.5 fL (81.0-99.0) 01/02/17 05:23 MCH 29.3 pg (27.0-31.0) 01/02/17 05:23 MCHC 33.2 g/dL (32.0-36.0) 01/02/17 05:23 RDW 14.6 % (12.0-15.0) 01/02/17 05:23 Plt Count 233 10^3/uL (130-450) 01/02/17 05:23 MPV 8.2 fL (7.9-10.8) 01/02/17 05:23 Neut # 16.8 10^3/uL (1.5-6.6) H 01/02/17 05:23 Lymph # 1.0 10^3/uL (1.5-3.5) L 01/02/17 05:23 Chaves # 0.8 10^3/uL (0.0-1.0) 01/02/17 05:23 Eos # 0.0 10^3/uL (0.0-0.7) 01/02/17 05:23 Baso # 0.1 10^3/uL (0.0-0.1) 01/02/17 05:23 Absolute Nucleated RBC 0.01 x10^3/uL 01/02/17 05:23 Nucleated RBCs 0.1 /100WBC 01/02/17 05:23 Manual Slide Review Indicated 01/01/17 15:30 Platelet Estimate NORMAL (130-450,000) (NORMAL) 01/01/17 15:30 Platelet Morphology NORMAL APPEARANCE (NORMAL) 01/01/17 15:30 RBC Morph Micro Appear NORMAL APPEARANCE (NORMAL) 01/01/17 15:30 Sodium 131 mmol/L (135-145) L 01/02/17 05:23 Potassium 3.6 mmol/L (3.5-5.0) 01/02/17 05:23 Chloride 93 mmol/L (101-111) L 01/02/17 05:23 Carbon Dioxide 28 mmol/L (21-32) 01/02/17 05:23 Anion Gap 10.0 (6-13) 01/02/17 05:23 BUN 12 mg/dL (6-20) 01/02/17 05:23 Creatinine 0.8 mg/dL (0.4-1.0) 01/02/17 05:23 Estimated GFR (MDRD) 77 (>89) L 01/02/17 05:23 Glucose 312 mg/dL (70-100) H 01/02/17 05:23 Glycated Hemoglobin 9.2 % (4.6-6.2) H 01/01/17 15:30 Estim Average Glucose 217 (70-100) H 01/01/17 15:30 Lactic Acid 1.7 mmol/L (0.5-2.2) 01/01/17 15:30 Calcium 8.3 mg/dL (8.5-10.3) L 01/02/17 05:23 Total Bilirubin 2.2 mg/dL (0.2-1.0) H 01/02/17 05:23 Direct Bilirubin 1.4 mg/dL (0.1-0.5) H 01/02/17 05:23 AST 22 IU/L (10-42) 01/02/17 05:23 ALT 35 IU/L (10-60) 01/02/17 05:23 Alkaline Phosphatase 209 IU/L (42-121) H 01/02/17 05:23 Total Creatine Kinase 95 IU/L (22-269) 01/02/17 05:23 Total Protein 6.4 g/dL (6.7-8.2) L 01/02/17 05:23 Albumin 2.2 g/dL (3.2-5.5) L 01/02/17 05:23 Globulin 4.2 g/dL (2.1-4.2) 01/02/17 05:23 Albumin/Globulin Ratio 0.6 (1.0-2.2) L 01/01/17 15:30 Lipase < 10 U/L (22-51) L 01/01/17 15:30 Urine Color YELLOW 01/01/17 17:00 Urine Clarity CLEAR (CLEAR) 01/01/17 17:00 Urine pH 5.5 PH (5.0-7.5) 01/01/17 17:00 Ur Specific [place] 1.015 (1.002-1.030) 01/01/17 17:00 Urine Protein 30 mg/dL (NEGATIVE) H 01/01/17 17:00 Urine Glucose (UA) >=1000 mg/dL (NEGATIVE) H 01/01/17 17:00 Urine Ketones >=80 mg/dL (NEGATIVE) H 01/01/17 17:00 Urine Occult Blood SMALL (NEGATIVE) H 01/01/17 17:00 Urine Nitrite NEGATIVE (NEGATIVE) 01/01/17 17:00 Urine Bilirubin MODERATE (NEGATIVE) H 01/01/17 17:00 Urine Urobilinogen 1 (NORMAL) E.U./dL (NORMAL) 01/01/17 17:00 Ur Leukocyte Esterase NEGATIVE (NEGATIVE) 01/01/17 17:00 Urine RBC 0-5 /HPF (0-5) 01/01/17 17:00 Urine WBC 0-3 /HPF (0-5) 01/01/17 17:00 Ur Squamous Epith Cells FEW Squamous (<= Few) 01/01/17 17:00 Urine Bacteria Rare /HPF (None Seen) 01/01/17 17:00 Ur Microscopic Review INDICATED 01/01/17 17:00 Urine Culture Comments NOT INDICATED 01/01/17 17:00
--- NOTE | 2017-01-02 07:59 | Ultrasound Report ---
EXAM: ABDOMEN ULTRASOUND EXAM DATE: 01/02/2017 07:25 AM. CLINICAL HISTORY: Elevated bilirubin, leukocytosis h/o fatty liver. COMPARISON: 11/06/2014. 10/14/2014. 06/23/2014. TECHNIQUE: Real-time scanning was performed with static images obtained. FINDINGS: Liver: Diffuse increase in hepatic parenchymal echotexture. Focus of increased echotexture is seen in the left lobe of the liver measuring 1 x 0.5 x 0.8 cm. No other hepatic lesions. Mild intrahepatic d uctal prominence. The liver is enlarged, 19.4 cm. Main portal vein flow: Patent. Gallbladder: Status post cholecystectomy. Biliary System: Common bile duct measures 3 mm. No intrahepatic or extrahepatic ductal dilatation. Pancreas: Visualized portions of the pancreas are unremarkable. The majority of the pancreas is not w ell seen. Kidneys: Right: 12.1 cm longitudinally. Normal. No contour-deforming mass, stones, or hydronephrosis. Left: 12.5 cm longitudinally. Normal. No contour-deforming mass, stones, or hydronephrosis. Spleen: 10.6 cm. Normal in size and echotexture. Aorta and Inferior Vena Cava: Abdominal aorta distally is not well seen. Mid and proximal abdomen aor ta are normal in caliber. IVC is unremarkable. No ascites. IMPRESSION: 1. Hepatomegaly with diffuse increased hepatic parenchymal echotexture, findings typically seen with fatty replacement. Echogenic focus in the left lobe of the liver measuring 1 cm, indeterminate. If fu rther detail is warranted then consider MRI of the liver. 2. Status post cholecystectomy. Common bile is not dilated. 3. No hydronephrosis. [facility] Referring Provider Line: [phone] SITE ID: [id number]
[2017-01-02] MEDS ORDERED: PIPERACILLIN/TAZOBACTAM 4.5 GM in SODIUM CHLORIDE 0.9% MINIBAG 100 ML IV SCH (08:00)
[2017-01-02] MEDS: SODIUM CHLORIDE 0.9% 1,000 ML IV SCH ×3 (08:52→22:05)
[2017-01-02] MEDS ORDERED: ESTRADIOL 1 MG TABLET PO SCH (09:00)
[2017-01-02] MEDS ORDERED: OMEGA-3 ACID ETHYL ESTERS 1 GM CAPSULE PO SCH (09:00)
[2017-01-02] MEDS ORDERED: cefTRIAXone 2 GM in SODIUM CHLORIDE 0.9% MINIBAG 100 ML IV SCH (09:00)
[2017-01-02] MEDS: INSULIN ASPART 300 UNIT/3 ML PEN SUBQ SCH ×4 (09:07→20:51)
[2017-01-02] MEDS: INSULIN GLARGINE 300 UNIT/3 ML PEN SUBQ SCH (09:08)
[2017-01-02] MEDS: POLYETHYLENE GLYCOL 3350 17 GM PACKET PO SCH (09:17)
[2017-01-02] MEDS: ASPIRIN CHEW 81 MG TABLET PO SCH (09:17)
[2017-01-02] MEDS: ENOXAPARIN 40 MG/0.4 ML SYRINGE SUBQ SCH (09:18)
[2017-01-02] MEDS: oxyCODONE 5 MG TABLET PO PRN ×2 (09:25→16:13)
[2017-01-02] MEDS: AZITHROMYCIN INJ 500 MG in SODIUM CHLORIDE 0.9% 250 ML IV SCH (09:58)
[2017-01-02] MEDS: PIPERACILLIN/TAZOBACTAM 4.5 GM in SODIUM CHLORIDE 0.9% MINIBAG 100 ML IV SCH ×2 (11:43→20:38)
[2017-01-02 13:10] LABS: TRIGLYCERIDES 1152 mg/dL
[2017-01-02 13:33] LABS: LDL CHOLESTEROL,DIRECT 34 mg/dL
[2017-01-02] MEDS ORDERED: SODIUM CHLORIDE 0.9% 500 ML IV ONE (15:23)
--- NOTE | 2017-01-02 15:36 | CT Report ---
CT ABDOMEN AND PELVIS WITHOUT CONTRAST: 01/02/2017 CLINICAL INDICATION: Pancreatitis. TECHNIQUE: Axial CT images of the abdomen and pelvis were obtained with oral contrast only. Please also refer to separate dictation of chest CT. FINDINGS: ABDOMEN: Allowing for the lack of intravenous contrast enhancement, the liver, spleen, kidneys, and adrenal glands appear unremarkable. There are mild inflammatory changes adjacent to the body and janessa l of the pancreas. The patient is status post cholecystectomy. No bowel dilatation, free gas, or fr ee fluid is seen. No abdominal adenopathy is appreciated. PELVIS: Postoperative changes are seen in the pelvis. A small mesenteric lymph node is noted, which does not reach size criteria for lymphadenopathy. No pelvic sidewall adenopathy or free fluid is pr esent. Osseous structures demonstrate degenerative changes. IMPRESSION: MILD INFLAMMATORY CHANGES AROUND THE BODY AND TAIL OF THE PANCREAS. CHANGES OF CHOLECYS TECTOMY AND HYSTERECTOMY. In accordance with CT protocol optimization, one or more of the following dose reduction techniques w ere utilized for this exam: automated exposure control, adjustment of mA and/or KV based on patient size, or use of iterative reconstructive technique. JOB #: [id number] EXT JOB #:[id number]
[2017-01-02] MEDS ORDERED: METHYLNALTREXONE 12 MG/0.6 ML VIAL SUBQ ONE (16:05)
[2017-01-02] MEDS: HYDROmorphone 1 MG/ML SYRINGE IVP PRN (16:58)
[2017-01-02] MEDS: GEMFIBROZIL 600 MG TABLET PO SCH (16:58)
[2017-01-02] MEDS: FLUoxetine 10 MG CAPSULE PO SCH (20:49)
[2017-01-02] MEDS ORDERED: INSULIN GLARGINE 300 UNIT/3 ML PEN SUBQ SCH (21:00)
[2017-01-03] MEDS: oxyCODONE 5 MG TABLET PO PRN ×4 (02:04→18:40)
[2017-01-03] MEDS: PIPERACILLIN/TAZOBACTAM 4.5 GM in SODIUM CHLORIDE 0.9% MINIBAG 100 ML IV SCH ×3 (02:42→18:40)
[2017-01-03] MEDS: guaiFENesin/CODEINE 5 ML UDC PO PRN (02:42)
[2017-01-03] MEDS: SODIUM CHLORIDE 0.9% 1,000 ML IV SCH ×2 (06:38→18:40)
[2017-01-03] MEDS: PANTOPRAZOLE 40 MG TABLET PO SCH (06:39)
[2017-01-03] MEDS: GEMFIBROZIL 600 MG TABLET PO SCH ×2 (06:39→17:06)
[2017-01-03 07:43] LABS: ALBUMIN/GLOBULIN RATIO 0.5 (1.0-2.2); BILIRUBIN,TOTAL 1.3 mg/dL (0.2-1.0); BUN - BLOOD UREA NITROGEN 10 mg/dL (6-20); CALCIUM 7.4 mg/dL (8.5-10.3); CARBON DIOXIDE - CO2 26 mmol/L (21-32); CHLORIDE 92 mmol/L (101-111); CREATININE 0.6 mg/dL (0.4-1.0); GFR - MDRD 107 (>89); GLUCOSE 266 mg/dL (70-100); MAGNESIUM 2.1 mg/dL (1.7-2.8); PHOSPHORUS 1.5 mg/dL (2.5-4.6); POTASSIUM 3.7 mmol/L (3.5-5.0); SODIUM 128 mmol/L (135-145); TOTAL PROTEIN 5.6 g/dL (6.7-8.2)
[2017-01-03 07:53] LABS: VBG PH 7.37 (7.31-7.41)
[2017-01-03 07:54] LABS: CALCIUM, IONIZED 1.02 mmol/L (1.15-1.33)
[2017-01-03 08:40] LABS: BASOPHILS # (AUTO) 0.1 10^3/uL (0.0-0.1); BASOPHILS % (AUTO) 0.8 %; EOSINOPHILS # (AUTO) 0.4 10^3/uL (0.0-0.7); EOSINOPHILS % (AUTO) 2.4 %; HCT - HEMATOCRIT 27.8 % (37.0-47.0); HGB - HEMOGLOBIN 9.2 g/dL (12.0-16.0); LYMPHOCYTES # (AUTO) 1.7 10^3/uL (1.5-3.5); LYMPHOCYTES % (AUTO) 9.6 %; MEAN CORPUSCULAR HEMOGLOBIN 29.2 pg (27.0-31.0); MEAN CORPUSCULAR VOLUME 88.6 fL (81.0-99.0); MEAN PLATELET VOLUME 9.5 fL (7.9-10.8); MONOCYTES # (AUTO) 1.5 10^3/uL (0.0-1.0); MONOCYTES % (AUTO) 8.9 %; NEUTROPHILS # (AUTO) 13.6 10^3/uL (1.5-6.6); NEUTROPHILS % (AUTO) 78.3 %; NUCLEATED RED BLOOD CELLS AUTO 0.1 /100WBC; RED BLOOD COUNT 3.13 10^6/uL (4.20-5.40); RED CELL DISTRIBUTION WIDTH 15.3 % (12.0-15.0); UNCORRECTED WHITE BLOOD COUNT 19.3 x10^3/uL; WHITE BLOOD COUNT 17.3 x10^3/uL (4.8-10.8)
[2017-01-03] MEDS: SODIUM CHLORIDE FLUSH 0.9% 10 ML SYRINGE IVP SCH ×3 (09:06→20:54)
[2017-01-03 09:09] LABS: PLATELET MORPHOLOGY NORMAL APPEARANCE (NORMAL)
[2017-01-03 09:10] LABS: PLATELET ESTIMATE, MANUAL NORMAL (130-450,000) (NORMAL)
[2017-01-03] MEDS: ASPIRIN CHEW 81 MG TABLET PO SCH (09:13)
[2017-01-03] MEDS: AZITHROMYCIN INJ 500 MG in SODIUM CHLORIDE 0.9% 250 ML IV SCH (09:13)
[2017-01-03] MEDS: INSULIN ASPART 300 UNIT/3 ML PEN SUBQ SCH ×4 (09:16→20:53)
[2017-01-03] MEDS: POLYETHYLENE GLYCOL 3350 17 GM PACKET PO SCH (09:17)
[2017-01-03] MEDS: ENOXAPARIN 40 MG/0.4 ML SYRINGE SUBQ SCH (09:17)
--- NOTE | 2017-01-03 09:17 | PROVIDER PROGRESS NOTE ---
Assessment/Plan - Problem List (1) Acquired hypertriglyceridemia Assessment/Plan: acute with probably hypertriglyceridemia pancreatitis. IVF for aggressive hydration. start Lopid 600mg PO BID for triglycerides. 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 continue to give IV zofran and pain medication. continue with monitoring of electrolytes and liver enzymes. NPO to advance as tolerated. if still vomiting then NPO. (3) CAP (community acquired pneumonia) Assessment/Plan: acute and ongoing. continue with supplemental oxygen and antibiotics IV. monitor CBC and RT for support with breathing treatments.monitor for fever and tylenol ordered (4) Elevated bilirubin Assessment/Plan: acute. monitoring of liver and MRCP ordered (5) Acute pancreatitis Qualifiers: Pancreatitis type: unspecified pancreatitis type Acute pancreatitis complication: unspecified Qualified Code(s): K85.90 - Acute pancreatitis without necrosis or infection, unspecified (6) Obesity (BMI 30-39.9) Assessment/Plan: chronic. encourage ambulation and will be on low fat diet when tolerating - Current Meds Current Meds: Current Medications Generic Name Dose Route Start Last Admin Trade Name Freq PRN Reason Stop Dose Admin Aspirin 81 mg 01/02/17 09:00 01/02/17 09:17 [facility] Aspirin PO 81 mg DAILY AG Administration Enoxaparin Sodium 40 mg 01/02/17 09:00 01/02/17 09:18 Lovenox SUBQ 40 mg DAILY AG Administration Fluoxetine HCl 40 mg 01/01/17 21:00 01/02/17 20:49 Prozac PO 40 mg QPM AG Administration Gemfibrozil 600 mg 01/02/17 16:00 01/03/17 06:39 Lopid PO 600 mg BIDAC AG Administration Hydromorphone HCl 1 mg 01/02/17 16:03 01/02/17 16:58 Dilaudid Inj IVP 1 mg Q2HR PRN Administration PAIN Sodium Chloride 1,000 mls @ 100 mls/hr 01/01/17 20:00 01/03/17 06:38 Normal Saline 0.9% IV 100 mls/hr .Q10H AG Administration Azithromycin 500 mg/ Sodium 250 mls @ 250 mls/hr 01/02/17 09:00 01/02/17 09:58 Chloride IV 250 mls/hr DAILY AG Administration Piperacillin Sod/Tazobactam 100 mls @ 25 mls/hr 01/02/17 11:00 01/03/17 02:42 Sod 4.5 gm/ Sodium Chloride IV 25 mls/hr Q8H AG Administration Oxycodone HCl 5 mg 01/01/17 19:37 01/02/17 09:25 Roxicodone PO 5 mg Q4HR PRN Administration Pain 5 to 7 Oxycodone HCl 10 mg 01/01/17 19:37 01/03/17 06:39 Roxicodone PO 10 mg Q4HR PRN Administration Pain 8 to 10 Pantoprazole Sodium 40 mg 01/02/17 07:00 01/03/17 06:39 Protonix PO 40 mg QDAC AG Administration Polyethylene Glycol 17 gm 01/02/17 09:00 01/02/17 09:17 Miralax PO 17 gm DAILY AG Administration Sodium Chloride 10 ml 01/01/17 22:00 01/03/17 09:06 Normal Saline Flush 0.9% IVP Not Given Q8HR AG - Lab Result Lab results reviewed: Yes Fish Bone Diagrams: 01/03/17 08:20 01/03/17 07:21 Other Lab Results: Abnormal Lab Results 01/01/17 01/01/17 01/01/17 15:30 15:30 15:30 WBC 19.2 x10^3/uL H x10^3/uL (4.8-10.8) RBC 3.74 10^6/uL L 10^6/uL (4.20-5.40) Hgb 10.9 g/dL L g/dL (12.0-16.0) Hct 32.7 % L % (37.0-47.0) RDW Neut # 17.8 10^3/uL H 10^3/uL (1.5-6.6) Lymph # 0.8 10^3/uL L 10^3/uL (1.5-3.5) [place] # ESR Ionized Calcium Sodium 125 mmol/L L mmol/L (135-145) Chloride 88 mmol/L L mmol/L (101-111) Estimated GFR (MDRD) 67 L (>89) Glucose 358 mg/dL H mg/dL (70-100) POC Whole Bld Glucose Glycated Hemoglobin 9.2 % H % (4.6-6.2) Estim Average Glucose 217 H (70-100) Calcium Phosphorus Total Bilirubin 4.6 mg/dL H mg/dL (0.2-1.0) Direct Bilirubin Alkaline Phosphatase 197 IU/L H IU/L (42-121) C-Reactive Protein Total Protein 6.5 g/dL L g/dL (6.7-8.2) Albumin 2.4 g/dL L g/dL (3.2-5.5) Albumin/Globulin Ratio 0.6 L (1.0-2.2) Triglycerides Amylase Lipase < 10 U/L L U/L (22-51) Free T3 pg/mL PTH Intact Urine Protein Urine Glucose (UA) Urine Ketones Urine Occult Blood Urine Bilirubin 01/01/17 01/01/17 01/02/17 17:00 21:52 05:23 WBC 18.6 x10^3/uL H x10^3/uL (4.8-10.8) RBC 3.42 10^6/uL L 10^6/uL (4.20-5.40) Hgb 10.0 g/dL L g/dL (12.0-16.0) Hct 30.2 % L % (37.0-47.0) RDW Neut # 16.8 10^3/uL H 10^3/uL (1.5-6.6) Lymph # 1.0 10^3/uL L 10^3/uL (1.5-3.5) [place] # ESR Ionized Calcium Sodium Chloride Estimated GFR (MDRD) Glucose POC Whole Bld Glucose 405 mg/dL H mg/dL (70 - 100) Glycated Hemoglobin Estim Average Glucose Calcium Phosphorus Total Bilirubin Direct Bilirubin Alkaline Phosphatase C-Reactive Protein Total Protein Albumin Albumin/Globulin Ratio Triglycerides Amylase Lipase Free T3 pg/mL PTH Intact Urine Protein 30 mg/dL H mg/dL (NEGATIVE) Urine Glucose (UA) >=1000 mg/dL H mg/dL (NEGATIVE) Urine Ketones >=80 mg/dL H mg/dL (NEGATIVE) Urine Occult Blood SMALL H (NEGATIVE) Urine Bilirubin MODERATE H (NEGATIVE) 01/02/17 01/02/17 01/02/17 05:23 05:23 07:36 WBC RBC Hgb Hct RDW Neut # Lymph # [place] # ESR Ionized Calcium Sodium 131 mmol/L L mmol/L (135-145) Chloride 93 mmol/L L mmol/L (101-111) Estimated GFR (MDRD) 77 L (>89) Glucose 312 mg/dL H mg/dL (70-100) POC Whole Bld Glucose 316 mg/dL H mg/dL (70 - 100) Glycated Hemoglobin Estim Average Glucose Calcium 8.3 mg/dL L mg/dL (8.5-10.3) Phosphorus Total Bilirubin 2.2 mg/dL H mg/dL (0.2-1.0) Direct Bilirubin 1.4 mg/dL H mg/dL (0.1-0.5) Alkaline Phosphatase 209 IU/L H IU/L (42-121) C-Reactive Protein Total Protein 6.4 g/dL L g/dL (6.7-8.2) Albumin 2.2 g/dL L g/dL (3.2-5.5) Albumin/Globulin Ratio Triglycerides Amylase Lipase Free T3 pg/mL PTH Intact Urine Protein Urine Glucose (UA) Urine Ketones Urine Occult Blood Urine Bilirubin 01/02/17 01/02/17 01/02/17 07:55 07:58 08:08 WBC RBC Hgb Hct RDW Neut # Lymph # [place] # ESR Ionized Calcium Sodium Chloride Estimated GFR (MDRD) Glucose POC Whole Bld Glucose Glycated Hemoglobin Estim Average Glucose Calcium Phosphorus Total Bilirubin Direct Bilirubin Alkaline Phosphatase C-Reactive Protein 43.8 mg/dL H mg/dL (0-1.0) Total Protein Albumin Albumin/Globulin Ratio Triglycerides 1152 mg/dL H mg/dL ( - 149) Amylase 13 U/L L U/L (28-100) Lipase 12 U/L L U/L (22-51) Free T3 pg/mL 2.04 pg/mL L pg/mL (2.5-3.9) PTH Intact Urine Protein Urine Glucose (UA) Urine Ketones Urine Occult Blood Urine Bilirubin 01/02/17 01/02/17 01/02/17 11:27 16:51 20:29 WBC RBC Hgb Hct RDW Neut # Lymph # [place] # ESR Ionized Calcium Sodium Chloride Estimated GFR (MDRD) Glucose POC Whole Bld Glucose 288 mg/dL H mg/dL 292 mg/dL H mg/dL 296 mg/dL H mg/dL (70 - 100) (70 - 100) (70 - 100) Glycated Hemoglobin Estim Average Glucose Calcium Phosphorus Total Bilirubin Direct Bilirubin Alkaline Phosphatase C-Reactive Protein Total Protein Albumin Albumin/Globulin Ratio Triglycerides Amylase Lipase Free T3 pg/mL PTH Intact Urine Protein Urine Glucose (UA) Urine Ketones Urine Occult Blood Urine Bilirubin 01/03/17 01/03/17 01/03/17 07:21 07:21 07:21 WBC RBC Hgb Hct RDW Neut # Lymph # [place] # ESR > 140 mm/Hr H mm/Hr (0-20) Ionized Calcium 1.02 mmol/L L mmol/L (1.15-1.33) Sodium 128 mmol/L L mmol/L (135-145) Chloride 92 mmol/L L mmol/L (101-111) Estimated GFR (MDRD) Glucose 266 mg/dL H mg/dL (70-100) POC Whole Bld Glucose Glycated Hemoglobin Estim Average Glucose Calcium 7.4 mg/dL L mg/dL (8.5-10.3) Phosphorus 1.5 mg/dL L mg/dL (2.5-4.6) Total Bilirubin 1.3 mg/dL H mg/dL (0.2-1.0) Direct Bilirubin Alkaline Phosphatase 190 IU/L H IU/L (42-121) C-Reactive Protein Total Protein 5.6 g/dL L g/dL (6.7-8.2) Albumin 1.9 g/dL L g/dL (3.2-5.5) Albumin/Globulin Ratio 0.5 L (1.0-2.2) Triglycerides Amylase Lipase Free T3 pg/mL PTH Intact Urine Protein Urine Glucose (UA) Urine Ketones Urine Occult Blood Urine Bilirubin 01/03/17 01/03/17 01/03/17 07:38 08:20 10:39 WBC 17.3 x10^3/uL H x10^3/uL (4.8-10.8) RBC 3.13 10^6/uL L 10^6/uL (4.20-5.40) Hgb 9.2 g/dL L g/dL (12.0-16.0) Hct 27.8 % L % (37.0-47.0) RDW 15.3 % H % (12.0-15.0) Neut # 13.6 10^3/uL H 10^3/uL (1.5-6.6) Lymph # [place] # 1.5 10^3/uL H 10^3/uL (0.0-1.0) ESR Ionized Calcium Sodium Chloride Estimated GFR (MDRD) Glucose POC Whole Bld Glucose 259 mg/dL H mg/dL (70 - 100) Glycated Hemoglobin Estim Average Glucose Calcium Phosphorus Total Bilirubin Direct Bilirubin Alkaline Phosphatase C-Reactive Protein Total Protein Albumin Albumin/Globulin Ratio Triglycerides Amylase Lipase Free T3 pg/mL PTH Intact 123 pg/mL H pg/mL (12-88) Urine Protein Urine Glucose (UA) Urine Ketones Urine Occult Blood Urine Bilirubin 01/03/17 11:23 WBC RBC Hgb Hct RDW Neut # Lymph # [place] # ESR Ionized Calcium Sodium Chloride Estimated GFR (MDRD) Glucose POC Whole Bld Glucose 379 mg/dL H mg/dL (70 - 100) Glycated Hemoglobin Estim Average Glucose Calcium Phosphorus Total Bilirubin Direct Bilirubin Alkaline Phosphatase C-Reactive Protein Total Protein Albumin Albumin/Globulin Ratio Triglycerides Amylase Lipase Free T3 pg/mL PTH Intact Urine Protein Urine Glucose (UA) Urine Ketones Urine Occult Blood Urine Bilirubin - EKG Results EKG Interpreted Independently: No - Diagnostic Imaging Results Diagnostic Imaging Results Comments: Pending for MRCP - Other Other Results/Comments: CT of abdomen showed significant inflammation of the pancreatic head and around - Additional Planning Condition/Complexity: Guarded My Orders: My Active Orders 01/02/17 11:00 Piperacillin/Tazobactam [Zosyn] 4.5 gm Sodium Chloride 0.9% Minibag [Normal Saline 0.9% Minibag] 100 ml IV Q8H 01/02/17 13:11 SMOOTH MUSCLE IGG AB [REFLAB] Stat 01/02/17 14:04 Chest W/O [CT] Stat 01/02/17 16:00 Gemfibrozil [Lopid] 600 mg PO BIDAC 01/02/17 16:03 HYDROmorphone INJ [Dilaudid Inj] 1 mg IVP Q2HR PRN 01/03/17 ANCA SCREEN W RFLX TITER [REFLAB] Stat MYCOPLASMA PNEUMONIAE IGG/IGM [REFLAB] Stat PARATHYROID HORMONE, INTACT [IAI] Stat 01/03/17 08:56 Insulin Glargine [Lantus Solostar] 25 unit SUBQ BID 01/03/17 09:00 prednisoLONE ORAL SOLN [Prelone Oral Soln] 30 mg PO DAILY 01/03/17 09:09 Insulin Aspart [NovoLOG] 3 - 11 unit SUBQ 0800,1200,1700,2100 01/03/17 09:11 Head or Neck Soft Tissue [US] Stat 01/03/17 12:00 Neutra-Phos [K-Phos Neutral] 250 mg PO TIDWM Consult/Specialty: OT, PT, Surgery Plan Discussed with:: Patient, Case Management Time Spent: 31-60 minutes Subjective - Subjective Patient Reports: Abdominal Pain, Constipation, Fatigue, Nausea, Other (altered and complaining of worsening abdominal pain with nausea and more distention.) Nursing Reports: Constipation, Nausea, Pain, Sedated Objective Vital Signs: Vital Signs - 24 hr 01/02/17 01/03/17 01/03/17 16:09 01:54 07:41 Temperature 36.9 C 36.5 C 36.6 C Heart Rate [ 91 93 89 Brachial] Respiratory 20 18 19 Rate Blood Pressure 105/61 139/74 H 117/72 [Right Brachial artery] O2 Saturation 96 94 97 Oxygen O2 Source Nasal cannula I&O (Last 24 Hrs): Intake and Output Totals x24h 01/01/17 01/02/17 01/03/17 23:59 23:59 23:59 Intake Total 240 2142 2067 Output Total 781 Balance 240 1361 2067 General: Alert, Cooperative, No acute distress, Other (lethargic) HEENT: PERRLA Neck: Supple, No JVD Lymphatic: no adenopathy Neuro: Alert, Disoriented, Oriented Times 3 Cardiovascular: Regular rate, Normal S1, Normal S2, No murmurs Respiratory: No respiratory distress, Wheezes, Rhonchi, Other (diminished in lower bases) Abdomen: Soft, Other (distention and pain to upper right and left abdomen) Genitourinary: No Discharge Rectal: Stool - Heme NEG (worsening abdominal distention with nausea and pain with pending MRCP for pancreatitis and autoimmune) Extremities: No clubbing, No cyanosis, Other (edema to upper extremities) Skin: No rashes, No breakdown, No significant lesion - Results Results: Laboratory Results WBC 17.3 x10^3/uL (4.8-10.8) H 01/03/17 08:20 RBC 3.13 10^6/uL (4.20-5.40) L 01/03/17 08:20 Hgb 9.2 g/dL (12.0-16.0) L 01/03/17 08:20 Hct 27.8 % (37.0-47.0) L 01/03/17 08:20 MCV 88.6 fL (81.0-99.0) 01/03/17 08:20 MCH 29.2 pg (27.0-31.0) 01/03/17 08:20 MCHC 33.0 g/dL (32.0-36.0) 01/03/17 08:20 RDW 15.3 % (12.0-15.0) H 01/03/17 08:20 Plt Count 199 10^3/uL (130-450) 01/03/17 08:20 MPV 9.5 fL (7.9-10.8) 01/03/17 08:20 Neut # 13.6 10^3/uL (1.5-6.6) H 01/03/17 08:20 Lymph # 1.7 10^3/uL (1.5-3.5) 01/03/17 08:20 [place] # 1.5 10^3/uL (0.0-1.0) H 01/03/17 08:20 Eos # 0.4 10^3/uL (0.0-0.7) 01/03/17 08:20 Baso # 0.1 10^3/uL (0.0-0.1) 01/03/17 08:20 Absolute Nucleated RBC 0.02 x10^3/uL 01/03/17 08:20 Nucleated RBCs 0.1 /100WBC 01/03/17 08:20 Manual Slide Review Indicated 01/03/17 08:20 Platelet Estimate NORMAL (130-450,000) (NORMAL) 01/03/17 08:20 Platelet Morphology NORMAL APPEARANCE (NORMAL) 01/03/17 08:20 RBC Morph Micro Appear NORMAL APPEARANCE (NORMAL) 01/03/17 08:20 ESR > 140 mm/Hr (0-20) H 01/03/17 07:21 VBG pH 7.370 (7.31-7.41) 01/03/17 07:21 Ionized Calcium 1.02 mmol/L (1.15-1.33) L 01/03/17 07:21 Sodium 128 mmol/L (135-145) L 01/03/17 07:21 Potassium 3.7 mmol/L (3.5-5.0) 01/03/17 07:21 Chloride 92 mmol/L (101-111) L 01/03/17 07:21 Carbon Dioxide 26 mmol/L (21-32) 01/03/17 07:21 Anion Gap 10.0 (6-13) 01/03/17 07:21 BUN 10 mg/dL (6-20) 01/03/17 07:21 Creatinine 0.6 mg/dL (0.4-1.0) 01/03/17 07:21 Estimated GFR (MDRD) 107 (>89) 01/03/17 07:21 Glucose 266 mg/dL (70-100) H 01/03/17 07:21 POC Whole Bld Glucose 259 mg/dL (70 - 100) H 01/03/17 07:38 Glycated Hemoglobin 9.2 % (4.6-6.2) H 01/01/17 15:30 Estim Average Glucose 217 (70-100) H 01/01/17 15:30 Lactic Acid 1.1 mmol/L (0.5-2.2) 01/02/17 07:58 Calcium 7.4 mg/dL (8.5-10.3) L 01/03/17 07:21 Ionized Calcium YES 01/03/17 07:21 Phosphorus 1.5 mg/dL (2.5-4.6) L 01/03/17 07:21 Magnesium 2.1 mg/dL (1.7-2.8) 01/03/17 07:21 Total Bilirubin 1.3 mg/dL (0.2-1.0) H 01/03/17 07:21 Direct Bilirubin 1.4 mg/dL (0.1-0.5) H 01/02/17 05:23 GGT 32 IU/L (8-38) 01/02/17 07:55 AST 25 IU/L (10-42) 01/03/17 07:21 ALT 28 IU/L (10-60) 01/03/17 07:21 Alkaline Phosphatase 190 IU/L (42-121) H 01/03/17 07:21 Total Creatine Kinase 95 IU/L (22-269) 01/02/17 05:23 C-Reactive Protein 43.8 mg/dL (0-1.0) H 01/02/17 07:58 Total Protein 5.6 g/dL (6.7-8.2) L 01/03/17 07:21 Albumin 1.9 g/dL (3.2-5.5) L 01/03/17 07:21 Globulin 3.7 g/dL (2.1-4.2) 01/03/17 07:21 Albumin/Globulin Ratio 0.5 (1.0-2.2) L 01/03/17 07:21 Triglycerides 1152 mg/dL (-149) H 01/02/17 07:55 LDL Cholesterol Direct 34 mg/dL (-129) 01/02/17 07:55 dLDL/HDL Ratio Not Reportable 01/02/17 07:55 Amylase 13 U/L (28-100) L 01/02/17 07:58 Lipase 12 U/L (22-51) L 01/02/17 07:58 TSH 2.77 uIU/mL (0.34-5.60) 01/02/17 07:58 Free T4 0.70 ng/dL (0.58-1.64) 01/02/17 08:08 Free T3 pg/mL 2.04 pg/mL (2.5-3.9) L 01/02/17 08:08 Urine Color YELLOW 01/01/17 17:00 Urine Clarity CLEAR (CLEAR) 01/01/17 17:00 Urine pH 5.5 PH (5.0-7.5) 01/01/17 17:00 Ur Specific [place] 1.015 (1.002-1.030) 01/01/17 17:00 Urine Protein 30 mg/dL (NEGATIVE) H 01/01/17 17:00 Urine Glucose (UA) >=1000 mg/dL (NEGATIVE) H 01/01/17 17:00 Urine Ketones >=80 mg/dL (NEGATIVE) H 01/01/17 17:00 Urine Occult Blood SMALL (NEGATIVE) H 01/01/17 17:00 Urine Nitrite NEGATIVE (NEGATIVE) 01/01/17 17:00 Urine Bilirubin MODERATE (NEGATIVE) H 01/01/17 17:00 Urine Urobilinogen 1 (NORMAL) E.U./dL (NORMAL) 01/01/17 17:00 Ur Leukocyte Esterase NEGATIVE (NEGATIVE) 01/01/17 17:00 Urine RBC 0-5 /HPF (0-5) 01/01/17 17:00 Urine WBC 0-3 /HPF (0-5) 01/01/17 17:00 Ur Squamous Epith Cells FEW Squamous (<= Few) 01/01/17 17:00 Urine Bacteria Rare /HPF (None Seen) 01/01/17 17:00 Ur Microscopic Review INDICATED 01/01/17 17:00 Urine Culture Comments NOT INDICATED 01/01/17 17:00
[2017-01-03] MEDS: INSULIN GLARGINE 300 UNIT/3 ML PEN SUBQ SCH ×2 (10:21→20:53)
[2017-01-03] MEDS: NEUTRA-PHOS 250 MG TABLET PO SCH ×2 (12:52→17:06)
[2017-01-03] MEDS: methylPREDNISolone SUCCINATE 125 MG/2 ML VIAL IVP SCH ×2 (14:46→20:52)
[2017-01-03] MEDS ORDERED: diphenhydrAMINE INJ 50 MG/ML VIAL IVP PRN (14:53)
[2017-01-03] MEDS ORDERED: LORazepam 2 MG/ML SYRINGE IVP SCH (15:00)
[2017-01-03] MEDS ORDERED: PROMETHAZINE INJ 25 MG in SODIUM CHLORIDE 0.9% 50 ML IV PRN (15:53)
[2017-01-03] MEDS ORDERED: PROMETHAZINE 25 MG/1 ML VIAL IM PRN (15:56)
[2017-01-03] MEDS ORDERED: OMEGA-3 ACID ETHYL ESTERS 1 GM CAPSULE PO SCH (16:00)
[2017-01-03] MEDS: IPRATROPIUM/ALBUTEROL 3 ML NEB INH SCH ×2 (16:37→18:40)
[2017-01-03] MEDS: ALPRAZolam 0.25 MG TABLET PO PRN (17:07)
--- NOTE | 2017-01-03 19:14 | MRI Preliminary Report ---
Exam: MRI MRCP W/O IMPRESSION: 1. Normal MR appearance of the pancreas. 2. Status post cholecystectomy with normal diameter common duct. No choledocholithiasis. 3. Marked fatty infiltration of the liver. 4. Trace bilateral pleural effusions with airspace disease in the right middle lobe and right lower l obe consistent with pneumonia. [facility] SITE ID: [id number]
--- NOTE | 2017-01-03 19:17 | MRI Report ---
EXAM: MR ABDOMEN WITHOUT CONTRAST (MR CHOLANGIOPANCREATOGRAPHY) EXAM DATE: 01/03/2017 06:35 PM. CLINICAL HISTORY: Acute pancreatitis with liver steatosis. COMPARISON: Abdomen and pelvis CT 01/02/2017. TECHNIQUE: Multiplanar breath-hold T1 and T2 sequences obtained through the abdomen on an MR scanner. Dedicated 2D and 3D MRCP sequences obtained through the biliary and pancreatic ducts. No intravenous contrast given. FINDINGS: Lung Bases: Trace bilateral pleural effusions with airspace consolidation in the right middle lobe an d right lower lobe. Minimal airspace disease left lower lobe. Liver: Diffuse signal drop within the liver consistent with fatty infiltration without evidence of fo keiry lesion on this unenhanced examination. CBD: The extrahepatic ducts appear normal. The CBD is 3 mm in diameter. Gallbladder: Status post cholecystectomy Pancreas: The pancreas appears normal with no mass. The pancreatic duct measures 1 mm in diameter and appears normal with no stone or stricture. Spleen: The spleen appears normal. Kidneys and Adrenals: Trace nonspecific edema surrounding the kidneys without evidence of hydronephro sis. No gross abnormality on unenhanced imaging. There are no cysts in the kidneys. The adrenals appe ar normal. Bowel: The small bowel and colon appear normal with no inflammation or obstruction. Retroperitoneum: The retroperitoneal structures appear normal with no mass or lymphadenopathy. IMPRESSION: 1. Normal MR appearance of the pancreas. 2. Status post cholecystectomy with normal diameter common duct. No choledocholithiasis. 3. Marked fatty infiltration of the liver. 4. Trace bilateral pleural effusions with airspace disease in the right middle lobe and right lower l obe consistent with pneumonia. [facility] Referring Provider Line: [phone] SITE ID: [id number]
--- NOTE | 2017-01-03 19:58 | Ultrasound Preliminary Report ---
Exam: US Head or Neck Soft Tissue IMPRESSION: 1. Normal overall thyroid parenchymal echotexture but the thyroid gland is diffusely hypovascular. No rmal size of the right lobe. Small left lobe. 2. Small left inferior lobe nodule does not meet consensus criteria for tissue sampling. Management recommendations are based on 2015 [place] [employer] Management Guidelines for A dult Patients with Thyroid Nodules and Differentiated Thyroid Cancer. [facility] SITE ID: [id number]
--- NOTE | 2017-01-03 20:01 | Ultrasound Report ---
EXAM: THYROID ULTRASOUND EXAM DATE: 01/03/2017 07:19 PM. 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 COMPARISON: None. TECHNIQUE: Real time sonographic imaging of the thyroid was performed by the instrument assembly supervisor. Multiple re presentative static images were saved for review. FINDINGS: THYROID GLAND: Right Lobe: 4.6 x 2.0 x 1.7 cm, volume 8 cc. Normal background echotexture. Diffusely hypovascular. Right Lobe Nodules: None. Left Lobe: 3.8 x 1.5 x 1.3 cm, volume 4 cc. Normal background echotexture. Diffusely hypovascular Left Lobe Nodules: Somewhat ill-defined echogenic nodule in the inferior pole measures 6 x 5 x 7 mm. There is minimal internal vascularity but no calcification. Isthmus: 3 cm AP. Isthmic Nodules: None. LYMPH NODES: No adenopathy demonstrated in the central or lateral compartment. OTHER: None. IMPRESSION: 1. Normal overall thyroid parenchymal echotexture but the thyroid gland is diffusely hypovascular. No rmal size of the right lobe. Small left lobe. 2. Small left inferior lobe nodule does not meet consensus criteria for tissue sampling. Management recommendations are based on 2015 [place] [employer] Management Guidelines for A dult Patients with Thyroid Nodules and Differentiated Thyroid Cancer. [facility] Referring Provider Line: [phone] SITE ID: [id number]
[2017-01-03] MEDS: FLUoxetine 10 MG CAPSULE PO SCH (20:43)
[2017-01-03] MEDS: CHOLECALCIFEROL 5,000 UNIT CAPSULE PO SCH (20:52)
[2017-01-03] MEDS: HYDROmorphone 1 MG/ML SYRINGE IVP PRN (22:08)
[2017-01-04] MEDS: oxyCODONE 5 MG TABLET PO PRN ×6 (00:43→23:57)
[2017-01-04] MEDS: PIPERACILLIN/TAZOBACTAM 4.5 GM in SODIUM CHLORIDE 0.9% MINIBAG 100 ML IV SCH ×2 (03:28→11:10)
[2017-01-04] MEDS: SODIUM CHLORIDE 0.9% 1,000 ML IV SCH (04:07)
[2017-01-04] MEDS: GEMFIBROZIL 600 MG TABLET PO SCH ×2 (06:02→17:08)
[2017-01-04] MEDS: PANTOPRAZOLE 40 MG TABLET PO SCH (06:02)
[2017-01-04] MEDS: methylPREDNISolone SUCCINATE 125 MG/2 ML VIAL IVP SCH ×3 (06:02→21:17)
[2017-01-04] MEDS: SODIUM CHLORIDE FLUSH 0.9% 10 ML SYRINGE IVP SCH ×3 (06:29→21:17)
[2017-01-04 06:54] LABS: BASOPHILS % (AUTO) 0.3 %; EOSINOPHILS % (AUTO) 0.1 %; HCT - HEMATOCRIT 29.8 % (37.0-47.0); HGB - HEMOGLOBIN 9.8 g/dL (12.0-16.0); MEAN CORPUSCULAR HEMOGLOBIN 29.4 pg (27.0-31.0); MEAN CORPUSCULAR HGB CONC 32.9 g/dL (32.0-36.0); MEAN CORPUSCULAR VOLUME 89.3 fL (81.0-99.0); MEAN PLATELET VOLUME 8.6 fL (7.9-10.8); MONOCYTES % (AUTO) 2.1 %; NEUTROPHILS % (AUTO) 86.5 %; RED BLOOD COUNT 3.33 10^6/uL (4.20-5.40); RED CELL DISTRIBUTION WIDTH 15.1 % (12.0-15.0); UNCORRECTED WHITE BLOOD COUNT 9.3 x10^3/uL; WHITE BLOOD COUNT 9.3 x10^3/uL (4.8-10.8)
[2017-01-04 07:06] LABS: ALBUMIN/GLOBULIN RATIO 0.5 (1.0-2.2); BILIRUBIN,TOTAL 1.2 mg/dL (0.2-1.0); BUN - BLOOD UREA NITROGEN 8 mg/dL (6-20); CALCIUM 7.5 mg/dL (8.5-10.3); CARBON DIOXIDE - CO2 25 mmol/L (21-32); CHLORIDE 95 mmol/L (101-111); CREATININE 0.5 mg/dL (0.4-1.0); GFR - MDRD 132 (>89); GLUCOSE 282 mg/dL (70-100); POTASSIUM 4.4 mmol/L (3.5-5.0); SODIUM 132 mmol/L (135-145); TOTAL PROTEIN 6.6 g/dL (6.7-8.2)
[2017-01-04 07:14] LABS: BAND NEUTROPHILS % (MANUAL) 7 %; LYMPHOCYTES % (MANUAL) 10 %; NEUTROPHILS % (MANUAL) 80 %; TOTAL CELLS COUNTED 100
[2017-01-04 07:15] LABS: NP AUTO DIFFERENTIAL? YES; NP MAN DIFFERENTIAL? NO; PLATELET ESTIMATE, MANUAL NORMAL (130-450,000) (NORMAL); PLATELET MORPHOLOGY 1+ LARGE PLATELETS (NORMAL)
[2017-01-04 07:16] LABS: CALCIUM, IONIZED 0.95 mmol/L (1.15-1.33); VBG PH 7.373 (7.31-7.41)
[2017-01-04] MEDS: IPRATROPIUM/ALBUTEROL 3 ML NEB INH SCH ×5 (07:40→22:19)
[2017-01-04] MEDS: INSULIN ASPART 300 UNIT/3 ML PEN SUBQ SCH ×2 (08:07→11:29)
[2017-01-04] MEDS: NEUTRA-PHOS 250 MG TABLET PO SCH ×3 (08:07→17:09)
--- NOTE | 2017-01-04 08:22 | PROVIDER PROGRESS NOTE ---
Assessment/Plan - Problem List (1) CAP (community acquired pneumonia) Assessment/Plan: acute. continue on antibiotics but transition to oral Levaquin and continue with breathing treatments. and RT support with supplemental oxygen as needed (2) Acute pancreatitis Qualifiers: Pancreatitis type: unspecified pancreatitis type Acute pancreatitis complication: unspecified Qualified Code(s): K85.90 - Acute pancreatitis without necrosis or infection, unspecified Assessment/Plan: resolving. pain is decreased. due to triglycerides and autoimmune. continue with oral pain medications. will trend lipase and amylase (3) Acquired hypertriglyceridemia Assessment/Plan: acute. Lopid 600mg BID, add niaspan and omega 3 to medications daily. (4) Nonalcoholic fatty liver disease Assessment/Plan: chronic. continue to monitor liver enzymes and avoid toxic medications (5) Acute abdominal pain in right upper quadrant Assessment/Plan: acute, improving. continue with pain management oral and stop IV (6) Elevated bilirubin Assessment/Plan: acute. MRI sowed fatty liver and probably elevation in bilirubin related to this. elevated today and will continue to monitor. (7) Obesity (BMI 30-39.9) Assessment/Plan: chronic. continue to give daibetic low calorie low carb diet. (8) Fatty liver, alcoholic Assessment/Plan: chronic. continue to monitor LFTs and encourage cessation of drug usage and cholesterol managed with Lopid for triglycerides. (9) Low serum calcium Assessment/Plan: acute on chronic. with hyperparathyroidism and underlying autoimmune disease, unspecified. continue to monitory electrolytes. vitamin D replacement at [id number] daily. checking Vitamin D level. US of thyroid completed and was positive for hypovascular right side thyroid and left side lobe smaller. will need followup with endocrinology outpatient - Current Meds Current Meds: Current Medications Generic Name Dose Route Start Last Admin Trade Name Freq PRN Reason Stop Dose Admin Albuterol/Ipratropium 3 ml 01/03/17 11:00 01/04/17 07:41 Duoneb INH Not Given RTQID AG Alprazolam 0.5 mg 01/03/17 15:53 01/03/17 17:07 Xanax PO 0.5 mg BID PRN Administration Anxiety Aspirin 81 mg 01/02/17 09:00 01/03/17 09:13 St Ketan Aspirin PO 81 mg DAILY AG Administration Cholecalciferol 5,000 unit 01/03/17 21:00 01/03/17 20:52 Vitamin D3 PO 5,000 unit BID AG Administration Diphenhydramine HCl 25 mg 01/03/17 14:53 01/03/17 15:05 Benadryl Inj IVP 25 mg Q6H PRN Administration Allergy Symptoms Enoxaparin Sodium 40 mg 01/02/17 09:00 01/03/17 09:17 Lovenox SUBQ 40 mg DAILY AG Administration Fluoxetine HCl 40 mg 01/01/17 21:00 01/03/17 20:43 Prozac PO 40 mg QPM AG Administration Gemfibrozil 600 mg 01/02/17 16:00 01/04/17 06:02 Lopid PO 600 mg BIDAC AG Administration Hydromorphone HCl 1 mg 01/02/17 16:03 01/03/17 22:08 Dilaudid Inj IVP 1 mg Q2HR PRN Administration PAIN Sodium Chloride 1,000 mls @ 100 mls/hr 01/01/17 20:00 01/04/17 04:07 Normal Saline 0.9% IV 100 mls/hr .Q10H AG Administration Azithromycin 500 mg/ Sodium 250 mls @ 250 mls/hr 01/02/17 09:00 01/03/17 09:13 Chloride IV 250 mls/hr DAILY AG Administration Piperacillin Sod/Tazobactam 100 mls @ 25 mls/hr 01/02/17 11:00 01/04/17 03:28 Sod 4.5 gm/ Sodium Chloride IV 25 mls/hr Q8H AG Administration Insulin Aspart 3 - 11 unit 01/03/17 09:09 01/04/17 08:07 Novolog SUBQ 4 unit 0800,1200,1700,2100 AG Administration Protocol Insulin Glargine 25 unit 01/03/17 08:56 01/03/17 20:53 Lantus Solostar SUBQ 25 unit BID AG Administration Methylprednisolone Sodium Succinate 125 mg 01/03/17 14:00 01/04/17 06:02 Solu-Medrol (125mg Vial) IVP 125 mg TID AG Administration Oxycodone HCl 5 mg 01/01/17 19:37 01/02/17 09:25 Roxicodone PO 5 mg Q4HR PRN Administration Pain 5 to 7 Oxycodone HCl 10 mg 01/01/17 19:37 01/04/17 04:01 Roxicodone PO 10 mg Q4HR PRN Administration Pain 8 to 10 Pantoprazole Sodium 40 mg 01/02/17 07:00 01/04/17 06:02 Protonix PO 40 mg QDAC AG Administration Promethazine HCl 25 mg 01/03/17 15:56 01/03/17 17:07 Phenergan Inj IM 25 mg Q6HR PRN Administration Nausea / Vomiting Sodium Chloride 10 ml 01/01/17 22:00 01/04/17 06:29 Normal Saline Flush 0.9% IVP Not Given Q8HR AG Sodium Phosphate 250 mg 01/03/17 12:00 01/04/17 08:07 K-Phos Neutral PO 250 mg TIDWM AG Administration - Lab Result Lab results reviewed: Yes Fish Bone Diagrams: 01/04/17 06:28 01/04/17 06:28 Other Lab Results: Abnormal Lab Results 01/01/17 01/02/17 01/02/17 21:52 07:36 07:55 WBC RBC Hgb Hct RDW Neut # [place] # Neutrophils # (Manual) Lymphocytes # (Manual) ESR Ionized Calcium Sodium Chloride Glucose POC Whole Bld Glucose 405 mg/dL H mg/dL 316 mg/dL H mg/dL (70 - 100) (70 - 100) Calcium Phosphorus Total Bilirubin Alkaline Phosphatase C-Reactive Protein Total Protein Albumin Globulin Albumin/Globulin Ratio Triglycerides 1152 mg/dL H mg/dL ( - 149) Amylase Lipase Free T3 pg/mL PTH Intact 01/02/17 01/02/17 01/02/17 07:58 08:08 11:27 WBC RBC Hgb Hct RDW Neut # [place] # Neutrophils # (Manual) Lymphocytes # (Manual) ESR Ionized Calcium Sodium Chloride Glucose POC Whole Bld Glucose 288 mg/dL H mg/dL (70 - 100) Calcium Phosphorus Total Bilirubin Alkaline Phosphatase C-Reactive Protein 43.8 mg/dL H mg/dL (0-1.0) Total Protein Albumin Globulin Albumin/Globulin Ratio Triglycerides Amylase 13 U/L L U/L (28-100) Lipase 12 U/L L U/L (22-51) Free T3 pg/mL 2.04 pg/mL L pg/mL (2.5-3.9) PTH Intact 01/02/17 01/02/17 01/03/17 16:51 20:29 07:21 WBC RBC Hgb Hct RDW Neut # [place] # Neutrophils # (Manual) Lymphocytes # (Manual) ESR Ionized Calcium Sodium 128 mmol/L L mmol/L (135-145) Chloride 92 mmol/L L mmol/L (101-111) Glucose 266 mg/dL H mg/dL (70-100) POC Whole Bld Glucose 292 mg/dL H mg/dL 296 mg/dL H mg/dL (70 - 100) (70 - 100) Calcium 7.4 mg/dL L mg/dL (8.5-10.3) Phosphorus 1.5 mg/dL L mg/dL (2.5-4.6) Total Bilirubin 1.3 mg/dL H mg/dL (0.2-1.0) Alkaline Phosphatase 190 IU/L H IU/L (42-121) C-Reactive Protein Total Protein 5.6 g/dL L g/dL (6.7-8.2) Albumin 1.9 g/dL L g/dL (3.2-5.5) Globulin Albumin/Globulin Ratio 0.5 L (1.0-2.2) Triglycerides Amylase Lipase Free T3 pg/mL PTH Intact 01/03/17 01/03/17 01/03/17 07:21 07:21 07:38 WBC RBC Hgb Hct RDW Neut # [place] # Neutrophils # (Manual) Lymphocytes # (Manual) ESR > 140 mm/Hr H mm/Hr (0-20) Ionized Calcium 1.02 mmol/L L mmol/L (1.15-1.33) Sodium Chloride Glucose POC Whole Bld Glucose 259 mg/dL H mg/dL (70 - 100) Calcium Phosphorus Total Bilirubin Alkaline Phosphatase C-Reactive Protein Total Protein Albumin Globulin Albumin/Globulin Ratio Triglycerides Amylase Lipase Free T3 pg/mL PTH Intact 01/03/17 01/03/17 01/03/17 08:20 10:39 11:23 WBC 17.3 x10^3/uL H x10^3/uL (4.8-10.8) RBC 3.13 10^6/uL L 10^6/uL (4.20-5.40) Hgb 9.2 g/dL L g/dL (12.0-16.0) Hct 27.8 % L % (37.0-47.0) RDW 15.3 % H % (12.0-15.0) Neut # 13.6 10^3/uL H 10^3/uL (1.5-6.6) [place] # 1.5 10^3/uL H 10^3/uL (0.0-1.0) Neutrophils # (Manual) Lymphocytes # (Manual) ESR Ionized Calcium Sodium Chloride Glucose POC Whole Bld Glucose 379 mg/dL H mg/dL (70 - 100) Calcium Phosphorus Total Bilirubin Alkaline Phosphatase C-Reactive Protein Total Protein Albumin Globulin Albumin/Globulin Ratio Triglycerides Amylase Lipase Free T3 pg/mL PTH Intact 123 pg/mL H pg/mL (12-88) 01/03/17 01/03/17 01/04/17 16:26 20:30 06:28 WBC RBC 3.33 10^6/uL L 10^6/uL (4.20-5.40) Hgb 9.8 g/dL L g/dL (12.0-16.0) Hct 29.8 % L % (37.0-47.0) RDW 15.1 % H % (12.0-15.0) Neut # [place] # Neutrophils # (Manual) 8.1 10^3/uL H 10^3/uL (1.5-6.6) Lymphocytes # (Manual) 1.0 10^3/uL L 10^3/uL (1.5-3.5) ESR Ionized Calcium Sodium Chloride Glucose POC Whole Bld Glucose 199 mg/dL H mg/dL 271 mg/dL H mg/dL (70 - 100) (70 - 100) Calcium Phosphorus Total Bilirubin Alkaline Phosphatase C-Reactive Protein Total Protein Albumin Globulin Albumin/Globulin Ratio Triglycerides Amylase Lipase Free T3 pg/mL PTH Intact 01/04/17 01/04/17 01/04/17 06:28 06:28 07:35 WBC RBC Hgb Hct RDW Neut # [place] # Neutrophils # (Manual) Lymphocytes # (Manual) ESR Ionized Calcium 0.95 mmol/L L mmol/L (1.15-1.33) Sodium 132 mmol/L L mmol/L (135-145) Chloride 95 mmol/L L mmol/L (101-111) Glucose 282 mg/dL H mg/dL (70-100) POC Whole Bld Glucose 280 mg/dL H mg/dL (70 - 100) Calcium 7.5 mg/dL L mg/dL (8.5-10.3) Phosphorus Total Bilirubin 1.2 mg/dL H mg/dL (0.2-1.0) Alkaline Phosphatase 231 IU/L H IU/L (42-121) C-Reactive Protein Total Protein 6.6 g/dL L g/dL (6.7-8.2) Albumin 2.1 g/dL L g/dL (3.2-5.5) Globulin 4.5 g/dL H g/dL (2.1-4.2) Albumin/Globulin Ratio 0.5 L (1.0-2.2) Triglycerides Amylase Lipase Free T3 pg/mL PTH Intact - EKG Results EKG Interpreted Independently: No - Diagnostic Imaging Results Diagnostic Imaging Results: Final report reviewed - Additional Planning Condition/Complexity: Improved My Orders: My Active Orders 01/03/17 08:56 Insulin Glargine [Lantus Solostar] 25 unit SUBQ BID 01/03/17 09:09 Insulin Aspart [NovoLOG] 3 - 11 unit SUBQ 0800,1200,1700,2100 01/03/17 10:39 ANCA SCREEN W RFLX TITER [REFLAB] Stat MYCOPLASMA PNEUMONIAE IGG/IGM [REFLAB] Stat 01/03/17 11:00 Ipratropium/Albuterol [Duoneb] 3 ml INH RTQID 01/03/17 11:11 Nebulizer/MDI Tx. [RC] .qid 01/03/17 12:00 Neutra-Phos [K-Phos Neutral] 250 mg PO TIDWM 01/03/17 14:00 methylPREDNISolone SUCCINATE [SOLU-Medrol (125MG VIAL)] 125 mg IVP TID 01/03/17 14:53 diphenhydrAMINE INJ [Benadryl Inj] 25 mg IVP Q6H PRN 01/03/17 15:53 ALPRAZolam [Xanax] 0.5 mg PO BID PRN 01/03/17 15:56 Promethazine Inj [Phenergan Inj] 25 mg IM Q6HR PRN 01/03/17 17:15 HEAVY METALS PANEL, BLOOD [REFLAB] Stat 01/03/17 21:00 Cholecalciferol [Vitamin D3] 5,000 unit PO BID 01/03/17 Dinner Clear Liquid Diet [DIET] 01/04/17 06:28 VITAMIN D,D2,D3 PANEL [REFLAB] DAILYLAB Consult/Specialty: OT, PT Plan Discussed with:: Patient, Case Management (Patient has improved and will be on oral antibiotics and hope to discharge to home tomorrow. continue to monitor liver enzymes and using IS and walking) Time Spent: 31-60 minutes Subjective - Subjective Patient Reports: Feeling Better, Cough, Fatigue, Nausea, Other (feels better. getting neb treatments and no shortness or breath. improving chest pain with coughing) Nursing Reports: No Complaints Objective Vital Signs: Vital Signs - 24 hr 01/03/17 01/03/17 01/04/17 16:27 16:40 00:34 Temperature 36.4 C L 36.4 C L Heart Rate 89 Heart Rate [ 88 78 Brachial] Respiratory 21 18 16 Rate Blood Pressure 131/74 H 136/85 H [Right Brachial artery] O2 Saturation 96 98 01/04/17 01/04/17 07:37 07:40 Temperature 36.3 C L Heart Rate 74 Heart Rate [ 76 Brachial] Respiratory 17 18 Rate Blood Pressure 153/91 H [Right Brachial artery] O2 Saturation 97 Oxygen O2 Source Nasal cannula I&O (Last 24 Hrs): Intake and Output Totals x24h 01/02/17 01/03/17 01/04/17 23:59 23:59 23:59 Intake Total 2142 4471 745 Output Total 781 Balance 1361 4471 745 General: Alert, Oriented x3, Cooperative HEENT: Atraumatic, PERRLA, EOMI Neck: Supple, No JVD, No thyromegaly Lymphatic: no adenopathy Neuro: Alert, CN 2-12 Grossly Intact, Oriented Times 3 Cardiovascular: Regular rate, Normal S1, Normal S2 Respiratory: Chest non-tender, No respiratory distress, Other (diminished in the bases with more in the right middle and lower) Abdomen: No tenderness, No masses Genitourinary: No Bleeding Extremities: No clubbing, No cyanosis, No edema, Normal pulses Skin: No rashes, No breakdown, No significant lesion - Results Results: Laboratory Results WBC 9.3 x10^3/uL (4.8-10.8) 01/04/17 06:28 RBC 3.33 10^6/uL (4.20-5.40) L 01/04/17 06:28 Hgb 9.8 g/dL (12.0-16.0) L 01/04/17 06:28 Hct 29.8 % (37.0-47.0) L 01/04/17 06:28 MCV 89.3 fL (81.0-99.0) 01/04/17 06:28 MCH 29.4 pg (27.0-31.0) 01/04/17 06:28 MCHC 32.9 g/dL (32.0-36.0) 01/04/17 06:28 RDW 15.1 % (12.0-15.0) H 01/04/17 06:28 Plt Count 237 10^3/uL (130-450) 01/04/17 06:28 MPV 8.6 fL (7.9-10.8) 01/04/17 06:28 Neut # Not Reportable 01/04/17 06:28 Lymph # Not Reportable 01/04/17 06:28 [place] # Not Reportable 01/04/17 06:28 Eos # Not Reportable 01/04/17 06:28 Baso # Not Reportable 01/04/17 06:28 Absolute Nucleated RBC Not Reportable 01/04/17 06:28 Total Counted 100 01/04/17 06:28 Band Neuts % (Manual) 7 % (0-10) 01/04/17 06:28 Reactive Lymphs % (Man) 1 % 01/04/17 06:28 Neutrophils # (Manual) 8.1 10^3/uL (1.5-6.6) H 01/04/17 06:28 Lymphocytes # (Manual) 1.0 10^3/uL (1.5-3.5) L 01/04/17 06:28 Monocytes # (Manual) 0.2 10^3/uL (0.0-1.0) 01/04/17 06:28 Nucleated RBCs Not Reportable 01/04/17 06:28 Differential Comment MANUAL DIFFERENTIAL 01/04/17 06:28 Manual Slide Review Indicated 01/03/17 08:20 Platelet Estimate NORMAL (130-450,000) (NORMAL) 01/04/17 06:28 Platelet Morphology 1+ LARGE PLATELETS (NORMAL) 01/04/17 06:28 RBC Morph Micro Appear 1+ STOMATOCYTES (NORMAL) 01/04/17 06:28 ESR > 140 mm/Hr (0-20) H 01/03/17 07:21 VBG pH 7.373 (7.31-7.41) 01/04/17 06:28 Ionized Calcium 0.95 mmol/L (1.15-1.33) L 01/04/17 06:28 Sodium 132 mmol/L (135-145) L 01/04/17 06:28 Potassium 4.4 mmol/L (3.5-5.0) 01/04/17 06:28 Chloride 95 mmol/L (101-111) L 01/04/17 06:28 Carbon Dioxide 25 mmol/L (21-32) 01/04/17 06:28 Anion Gap 12.0 (6-13) 01/04/17 06:28 BUN 8 mg/dL (6-20) 01/04/17 06:28 Creatinine 0.5 mg/dL (0.4-1.0) 01/04/17 06:28 Estimated GFR (MDRD) 132 (>89) 01/04/17 06:28 Glucose 282 mg/dL (70-100) H 01/04/17 06:28 POC Whole Bld Glucose 280 mg/dL (70 - 100) H 01/04/17 07:35 Glycated Hemoglobin 9.2 % (4.6-6.2) H 01/01/17 15:30 Estim Average Glucose 217 (70-100) H 01/01/17 15:30 Lactic Acid 1.1 mmol/L (0.5-2.2) 01/02/17 07:58 Calcium 7.5 mg/dL (8.5-10.3) L 01/04/17 06:28 Ionized Calcium YES 01/04/17 06:28 Phosphorus 1.5 mg/dL (2.5-4.6) L 01/03/17 07:21 Magnesium 2.1 mg/dL (1.7-2.8) 01/03/17 07:21 Total Bilirubin 1.2 mg/dL (0.2-1.0) H 01/04/17 06:28 Direct Bilirubin 1.4 mg/dL (0.1-0.5) H 01/02/17 05:23 GGT 32 IU/L (8-38) 01/02/17 07:55 AST 42 IU/L (10-42) 01/04/17 06:28 ALT 42 IU/L (10-60) 01/04/17 06:28 Alkaline Phosphatase 231 IU/L (42-121) H 01/04/17 06:28 Total Creatine Kinase 95 IU/L (22-269) 01/02/17 05:23 C-Reactive Protein 43.8 mg/dL (0-1.0) H 01/02/17 07:58 Total Protein 6.6 g/dL (6.7-8.2) L 01/04/17 06:28 Albumin 2.1 g/dL (3.2-5.5) L 01/04/17 06:28 Globulin 4.5 g/dL (2.1-4.2) H 01/04/17 06:28 Albumin/Globulin Ratio 0.5 (1.0-2.2) L 01/04/17 06:28 Triglycerides 1152 mg/dL (-149) H 01/02/17 07:55 LDL Cholesterol Direct 34 mg/dL (-129) 01/02/17 07:55 dLDL/HDL Ratio Not Reportable 01/02/17 07:55 Amylase 13 U/L (28-100) L 01/02/17 07:58 Lipase 12 U/L (22-51) L 01/02/17 07:58 TSH 2.77 uIU/mL (0.34-5.60) 01/02/17 07:58 Free T4 0.70 ng/dL (0.58-1.64) 01/02/17 08:08 Free T3 pg/mL 2.04 pg/mL (2.5-3.9) L 01/02/17 08:08 PTH Intact 123 pg/mL (12-88) H 01/03/17 10:39 Urine Color YELLOW 01/01/17 17:00 Urine Clarity CLEAR (CLEAR) 01/01/17 17:00 Urine pH 5.5 PH (5.0-7.5) 01/01/17 17:00 Ur Specific [place] 1.015 (1.002-1.030) 01/01/17 17:00 Urine Protein 30 mg/dL (NEGATIVE) H 01/01/17 17:00 Urine Glucose (UA) >=1000 mg/dL (NEGATIVE) H 01/01/17 17:00 Urine Ketones >=80 mg/dL (NEGATIVE) H 01/01/17 17:00 Urine Occult Blood SMALL (NEGATIVE) H 01/01/17 17:00 Urine Nitrite NEGATIVE (NEGATIVE) 01/01/17 17:00 Urine Bilirubin MODERATE (NEGATIVE) H 01/01/17 17:00 Urine Urobilinogen 1 (NORMAL) E.U./dL (NORMAL) 01/01/17 17:00 Ur Leukocyte Esterase NEGATIVE (NEGATIVE) 01/01/17 17:00 Urine RBC 0-5 /HPF (0-5) 01/01/17 17:00 Urine WBC 0-3 /HPF (0-5) 01/01/17 17:00 Ur Squamous Epith Cells FEW Squamous (<= Few) 01/01/17 17:00 Urine Bacteria Rare /HPF (None Seen) 01/01/17 17:00 Ur Microscopic Review INDICATED 01/01/17 17:00 Urine Culture Comments NOT INDICATED 01/01/17 17:00 Rheumatoid Factor NEGATIVE (Negative) 01/03/17 11:17
[2017-01-04 08:55] LABS: CHOL/HDL RATIO 31.4 (<4.4); CHOLESTEROL 314 mg/dL; HDL CHOLESTEROL 10 mg/dL; TRIGLYCERIDES 1114 mg/dL
[2017-01-04 09:16] LABS: LDL CHOLESTEROL,DIRECT 70 mg/dL
[2017-01-04] MEDS ORDERED: LACTULOSE 10 GM /15 ML UDC ONE (10:45)
[2017-01-04] MEDS: INSULIN GLARGINE 300 UNIT/3 ML PEN SUBQ SCH ×2 (10:46→21:16)
[2017-01-04] MEDS: CHOLECALCIFEROL 5,000 UNIT CAPSULE PO SCH ×2 (10:47→21:15)
[2017-01-04] MEDS: ASPIRIN CHEW 81 MG TABLET PO SCH (10:47)
[2017-01-04] MEDS: AZITHROMYCIN INJ 500 MG in SODIUM CHLORIDE 0.9% 250 ML IV SCH (10:47)
[2017-01-04] MEDS: ENOXAPARIN 40 MG/0.4 ML SYRINGE SUBQ SCH (10:49)
[2017-01-04] MEDS: HYDROmorphone 1 MG/ML SYRINGE IVP PRN (11:24)
[2017-01-04] MEDS: INSU100I18 SUBQ SCH ×3 (13:14→21:15)
[2017-01-04] MEDS: SACCHAROMYCES BOULARDII 250 MG CAPSULE PO SCH ×2 (14:20→17:09)
[2017-01-04] MEDS: OMEGA-3 ACID ETHYL ESTERS 1 GM CAPSULE PO SCH (14:20)
[2017-01-04] MEDS: levoFLOXacin 250 MG TABLET PO SCH (14:20)
[2017-01-04] MEDS ORDERED: ONDANSETRON ODT 4 MG TABLET TL PRN (19:27)
[2017-01-04] MEDS: ALPRAZolam 0.25 MG TABLET PO PRN (19:35)
[2017-01-04] MEDS ORDERED: NIACIN ER 500 MG TABLET PO SCH (21:00)
[2017-01-04] MEDS: FLUoxetine 10 MG CAPSULE PO SCH (21:15)
[2017-01-04] MEDS ORDERED: CALCIUM CARBONATE CHEW 500 MG TABLET PO SCH (23:25)
[2017-01-05] MEDS: ALPRAZolam 0.25 MG TABLET PO PRN (00:08)
[2017-01-05] MEDS: oxyCODONE 5 MG TABLET PO PRN (04:10)
[2017-01-05 06:10] LABS: ALBUMIN/GLOBULIN RATIO 0.5 (1.0-2.2); BILIRUBIN,TOTAL 0.8 mg/dL (0.2-1.0); BUN - BLOOD UREA NITROGEN 9 mg/dL (6-20); CALCIUM 7.5 mg/dL (8.5-10.3); CARBON DIOXIDE - CO2 26 mmol/L (21-32); CHLORIDE 98 mmol/L (101-111); CREATININE 0.5 mg/dL (0.4-1.0); GFR - MDRD 132 (>89); GLUCOSE 233 mg/dL (70-100); POTASSIUM 3.5 mmol/L (3.5-5.0); SODIUM 134 mmol/L (135-145); TOTAL PROTEIN 6.1 g/dL (6.7-8.2)
[2017-01-05 06:19] LABS: CALCIUM, IONIZED 0.99 mmol/L (1.15-1.33); VBG PH 7.481 (7.31-7.41)
[2017-01-05] MEDS: methylPREDNISolone SUCCINATE 125 MG/2 ML VIAL IVP SCH (06:27)
[2017-01-05] MEDS: GEMFIBROZIL 600 MG TABLET PO SCH (06:27)
[2017-01-05] MEDS: PANTOPRAZOLE 40 MG TABLET PO SCH (06:27)
[2017-01-05] MEDS: SODIUM CHLORIDE FLUSH 0.9% 10 ML SYRINGE IVP SCH (06:28)
[2017-01-05] MEDS: INSULIN GLARGINE 300 UNIT/3 ML PEN SUBQ SCH (07:57)
[2017-01-05] MEDS: INSU100I18 SUBQ SCH ×2 (07:57→11:40)
[2017-01-05] MEDS: SACCHAROMYCES BOULARDII 250 MG CAPSULE PO SCH (07:58)
[2017-01-05] MEDS: ENOXAPARIN 40 MG/0.4 ML SYRINGE SUBQ SCH (08:00)
[2017-01-05] MEDS: CHOLECALCIFEROL 5,000 UNIT CAPSULE PO SCH (08:00)
[2017-01-05] MEDS: OMEGA-3 ACID ETHYL ESTERS 1 GM CAPSULE PO SCH (08:00)
[2017-01-05] MEDS: NEUTRA-PHOS 250 MG TABLET PO SCH ×2 (08:00→11:40)
[2017-01-05] MEDS: levoFLOXacin 250 MG TABLET PO SCH (08:00)
[2017-01-05 08:08] VITALS: BP 145/88
[2017-01-05 08:11] LABS: BASOPHILS % (AUTO) 0.2 %; EOSINOPHILS % (AUTO) 0.1 %; LYMPHOCYTES # (AUTO) 0.9 10^3/uL (1.5-3.5); MONOCYTES # (AUTO) 0.8 10^3/uL (0.0-1.0); RED BLOOD COUNT 3.14 10^6/uL (4.20-5.40)
[2017-01-05 08:20] LABS: HCT - HEMATOCRIT 27.5 % (37.0-47.0); HGB - HEMOGLOBIN 9.2 g/dL (12.0-16.0); LYMPHOCYTES % (AUTO) 7.7 %; MEAN CORPUSCULAR HEMOGLOBIN 29.3 pg (27.0-31.0); MEAN CORPUSCULAR HGB CONC 33.6 g/dL (32.0-36.0); MEAN CORPUSCULAR VOLUME 87.4 fL (81.0-99.0); MEAN PLATELET VOLUME 8.2 fL (7.9-10.8); MONOCYTES % (AUTO) 6.3 %; NEUTROPHILS # (AUTO) 10.4 10^3/uL (1.5-6.6); NEUTROPHILS % (AUTO) 85.7 %; NUCLEATED RED BLOOD CELLS AUTO 0.2 /100WBC; RED CELL DISTRIBUTION WIDTH 15.3 % (12.0-15.0); UNCORRECTED WHITE BLOOD COUNT 12.1 x10^3/uL; WHITE BLOOD COUNT 12.1 x10^3/uL (4.8-10.8)
--- NOTE | 2017-01-05 08:25 | CT Report ---
CT OF THE CHEST WITHOUT CONTRAST: 01/02/2017 CLINICAL INDICATION: Pneumonia, pancreatitis. COMPARISON: Frontal chest of 01/01/2017. TECHNIQUE: Axial CT images of the chest were obtained without intravenous contrast. FINDINGS: The heart and great vessels appear unremarkable. No definite hilar or mediastinal lymphade nopathy is appreciated, allowing for the lack of intravenous contrast enhancement. There are widespre ad infiltrates throughout the right lung. Trace right pleural effusion is present. The left lung alice ins clear. No pneumothorax. The osseous structures appear unremarkable. IMPRESSION: WIDESPREAD INFILTRATES THROUGHOUT THE RIGHT LUNG. TRACE RIGHT EFFUSION. In accordance with CT protocol optimization, one or more of the following dose reduction techniques w ere utilized for this exam: automated exposure control, adjustment of mA and/or KV based on patient size, or use of iterative reconstructive technique. JOB #: [id number] EXT JOB #:[id number]
[2017-01-05] MEDS ORDERED: FLUoxetine 10 MG CAPSULE PO SCH (09:00)
[2017-01-05] MEDS: IPRATROPIUM/ALBUTEROL 3 ML NEB INH SCH ×2 (10:01→11:10)
--- NOTE | 2017-01-05 12:11 | Discharge Plan ---
Discharge Plan Disposition: Home, Self Care Condition: Stable Prescriptions: Ondansetron Odt [Zofran Odt] 4 mg TL Q4HR PRN #30 tablet PRN Reason: Nausea / Vomiting Neutra-Phos [K-Phos Neutral] 250 mg PO BID #30 tablet levoFLOXacin [Levaquin] 750 mg PO DAILY #5 tablet Gemfibrozil [Lopid] 600 mg PO BIDAC #60 tablet [place]-3 Acid Ethyl Esters [Lovaza] 1 gm PO DAILY #30 capsule Niacin [Niaspan] 500 mg PO QPM #30 tablet Cholecalciferol [Vitamin D3] 5,000 unit PO BID #60 capsule Diet: Diabetic (avoid gluten and dairy with your autoimmune disease. you need to monitor your blood glucose daily with meals.) Activity Restrictions: Activity as Tolerated Shower Restrictions: No Driving Restrictions: No Weight Bearing: Full Weight Instruction Topics: Triglycerides, Pancreatitis, Liver Function Ch Additional Instructions or Follow Up instructions: 1. Please continue on your home medications and you have been given a prescription for steroids and antibiotics for the right sided Pneumonia. 2. Continue to eat a diabetic diet that is low in carbohydrates and more protein and gluten and dairy free. Anti inflammatory diet is best. 3. Continue to get daily exercise and walking is best. 4. Get plenty of rest at night 7-8 hours is best. 5. Return to the ER if you have symptoms of chest pain or shortness of breath. Follow-Up Care: Dietitian (you need followup with dietary for anti inflammation diet. avoid gluten and dairy) No Smoking: If you smoke, Please STOP! Call for help.
--- NOTE | 2017-01-05 13:07 | DISCHARGE SUMMARY ---
"Discharge Summary Admit Date: 01/01/17 Discharge Date: 01/05/17 Discharging Provider: Francesca York APRN Code Status: Attempt Resuscitation Condition at Discharge: Stable Discharge Disposition: 01 Home, Self Care Discharge Facility Name: home - DIAGNOSES Admission Diagnoses: 1. Acute right upper and middle lobe Pneumonia, unk causal organism 2. 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 Obesity with BMI> 35 4. Acute pancreatitis 5. Acute tryglyceridemia 6. Fatty liver disease with obesity BMI>35 7. Elevated ESR >140 8. Major depressive disorder 9. Insulin dependent diabetes with complications Discharge Diagnoses with Status of Each Condition: 1. Acute right upper and middle lobe Pneumonia, with chronic inflammation and unk causal organism 2. 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 Obesity with BMI> 35 4. Acute elevated tryglyceride pancreatitis 5. Acute tryglyceridemia with hypercholesteremia 6. Fatty liver disease with obesity BMI>35 7. Elevated ESR >140 8. Major depressive disorder 9. Hyperglycemia with Insulin dependent diabetes with complications - HPI History of Present Illness: Patient is a very pleasant 46 year old female with past medical history of diabetes, paroxysmal atrial fibrillation not on anticoagulation, depression with history of suicide attempts, PTSD, anxiety, morbid obesity, fatty liver disease, hyperlipidemia, gastric ulcer disease, migraines and chronic abdominal pain who presents to the emergency department with a chief complaints of generalized weakness and lethargy which has been worsening of the last 3 days. The patient states she was in her normal state of health until a week ago when she states that she saw her PCP who changed her prozac to another antidepressant. She states that she was told with this new medication she could get flu like symptoms. Over the next few days she began to develop malaise, achy muscles, joints and a cough. She thought that this was all due to the change in her medication. She states that over the last 3 days she has began to have increasing cough which keeps her up all night and shortness of breath with exertion. She states the last 2 days she has become so weak that she has not left her bed. She states that 2 days ago when she got out of bed to go to the bathroom she fell on the floor and her daughter had to help her up. She states that today her daughter was concerned as she was very lethargic and seemed confused. The patients daughter called the patients who is away at work and the patients told the patient to go to the ER. The patient also states she has had a decreased appetite and not eaten at all for the last 2 days. She states she had a fever up to 101 and she has been experiencing chills the last few days. She denies any chest pain. She denies any headache, blurred vision, runny nose, she admits to a sore throat, she denies any abdominal pain, nausea or vomiting. She denies any urinary symptoms. She also denies any focal neurological deficits. On presentation to the Emergency Department the patient looked quite ill. She was tachycardic, tachypnic and had a low grade fever or 37.7. Her WBC was elevated to 19.2 and she had a sodium of 125 with an elevated glucose and an elevated bilirubin of 4.6 with an elevated Alk Phos. The patient had a bad cough and her lungs sounded bad so she underwent a chest xray which revealed a dense opacity in the right chest suggestive of a pneumonia. Patient was admitted to the hospital for sepsis with community acquired pneumonia. - CONSULTS | PROCEDURES Consultations: NONE - HOSPITAL COURSE Hospital Course: On presentation to the Emergency Department the patient looked quite ill. She was tachycardic, tachypnic and had a low grade fever or 37.7. Her WBC was elevated to 19.2 and she had a sodium of 125 with an elevated glucose and an elevated bilirubin of 4.6 with an elevated Alk Phos. The patient had a bad cough and her lungs sounded bad so she underwent a chest xray which revealed a dense opacity in the right chest suggestive of a pneumonia. Patient was admitted to the hospital for sepsis with community acquired pneumonia. Patient is a very pleasant 46 year old female with past medical history of diabetes, paroxysmal atrial fibrillation not on anticoagulation, depression with history of suicide attempts, PTSD, anxiety, morbid obesity, fatty liver disease, hyperlipidemia, gastric ulcer disease, migraines and chronic abdominal pain who presents to the emergency department with a chief complaints of generalized weakness and lethargy which has been worsening of the last 3 days. She was admitted for further evaluation. She was on antibiotics for right sided pneumonia with Rocephin and Azithromycin. She was given steroids for her inflammation and difficulty breathing. She continued to have upper abdominal pain and triglycerides were ordered and found to be elevated at 1114. Since she had an underlying undiagnosed autoimmunce disorder, her CRP and ESR was checked and were abnormal with ESR>140 and CRP at 48. She continued to have malaise, achy muscles, joints and a cough. She thought that this was all due to the change in her medication. She also was found to have fatty liver disease after she underwent a CT of the chest and MRCP to rule out worsening pancreatitis and for choleangitis. Since patient had a fever that continued she was on tylenol and home pain medications. She continued on her medications for depression from home. She was counseled on low fat diet and started on Lopid for elevated triglycerides and hypercholesteremia. She was instructed to be ambulatory with PT and OT. She had blood cultures that were negative for growth. Her blood glucose remained elevated during treatment, she was on lantus that was increased and on sliding scale with meals, also increased since blood glucose continued to run greater than 200. She was started on diabetic diet, hemoglobin A1C checked, thyroid panel checked and started on low fat low calorie diet. She improved for her pneumonia and white blood counts improved. On day of discharge, her WBC was 9, she had no fever, her pneumonia was improving and she was able to be discharged home. She had instructions for followup with PCP, endocrinology and rheumatology outpatient. - ALLERGIES Allergies/Adverse Reactions: Allergies Allergy/AdvReac Type Severity Reaction Status Date / Time acetaminophen [From Tylenol] Allergy Intermediate Emesis Verified 01/01/17 14:36 iodine AdvReac Severe passed out Verified 01/01/17 14:36 simvastatin [From Zocor] AdvReac Severe bone Verified 01/01/17 14:36 hurting - MEDICATIONS Home Medications: Ambulatory Orders Medication Instructions Recorded Confirmed RX: Insulin Aspart [Novolog] 10 - 15 unit SQ QID PRN 10/26/12 01/01/17 RX: FLUoxetine [PROzac] 40 mg PO QPM 10/10/13 01/01/17 RX: Aspirin 81 tab PO DAILY 03/27/16 01/01/17 RX: oxyCODONE [Roxicodone] 1 tab TID 07/03/16 01/01/17 Benzonatate [Tessalon] 200 mg PO BID #20 capsule 01/05/17 RX: Cholecalciferol [Vitamin D3] 5,000 unit PO BID #60 capsule 01/05/17 RX: Gemfibrozil [Lopid] 600 mg PO BIDAC #60 tablet 01/05/17 RX: Insulin Aspart [NovoLOG] 3 - 11 unit SUBQ 01/05/17 0800,1200,1700,2100 pen RX: Insulin Glargine [Lantus] 25 unit SUBQ QAM #0 01/05/17 01/01/17 RX: Neutra-Phos [K-Phos Neutral] 250 mg PO BID #30 tablet 01/05/17 RX: Niacin [Niaspan] 500 mg PO QPM #30 tablet 01/05/17 RX: [place]-3 Acid Ethyl Esters 1 gm PO DAILY #30 capsule 01/05/17 [Lovaza] RX: Ondansetron Odt [Zofran Odt] 4 mg TL Q4HR PRN #30 tablet 01/05/17 RX: Prednisone 10 mg PO DAILY #1 tab.ds.pk 01/05/17 RX: levoFLOXacin [Levaquin] 750 mg PO DAILY #5 tablet 01/05/17 - PHYSICAL EXAM AT DISCHARGE General Appearance: positive: No acute distress, Alert Eyes Bilateral: positive: Normal inspection, PERRL, EOMI ENT: positive: ENT inspection nml, Pharynx nml, No signs of dehydration Neck: positive: Nml inspection, Thyroid nml, No JVD, Trachea midline, Thyromegaly Respiratory: positive: Chest non-tender, No respiratory distress, Breath sounds nml (bronchila) Cardiovascular: positive: Regular rate & rhythm, No murmur, No gallop Peripheral Pulses: positive: 2+ Abdomen: positive: Non-tender, No organomegaly, Nml bowel sounds, No distention. negative: Guarding, Rebound Back: positive: Nml inspection Skin: positive: Color nml, No rash, Warm, Dry Extremities: positive: Non-tender, Full ROM, Nml appearance Neurologic/Psychiatric: positive: Oriented x3, CN's nml (2-12), Motor nml, Sensation nml, Mood/affect nml - LABS Result Diagrams: 01/05/17 05:29 01/05/17 05:29 Other Lab Results: Abnormal Lab Results 01/03/17 01/03/17 01/04/17 16:26 20:30 06:28 WBC RBC 3.33 10^6/uL L 10^6/uL (4.20-5.40) Hgb 9.8 g/dL L g/dL (12.0-16.0) Hct 29.8 % L % (37.0-47.0) RDW 15.1 % H % (12.0-15.0) Neut # Lymph # Neutrophils # (Manual) 8.1 10^3/uL H 10^3/uL (1.5-6.6) Lymphocytes # (Manual) 1.0 10^3/uL L 10^3/uL (1.5-3.5) VBG pH Ionized Calcium Sodium Chloride Glucose POC Whole Bld Glucose 199 mg/dL H mg/dL 271 mg/dL H mg/dL (70 - 100) (70 - 100) Calcium Total Bilirubin Alkaline Phosphatase Total Protein Albumin Globulin Albumin/Globulin Ratio Triglycerides Cholesterol HDL Cholesterol 01/04/17 01/04/17 01/04/17 06:28 06:28 06:28 WBC RBC Hgb Hct RDW Neut # Lymph # Neutrophils # (Manual) Lymphocytes # (Manual) VBG pH Ionized Calcium 0.95 mmol/L L mmol/L (1.15-1.33) Sodium 132 mmol/L L mmol/L (135-145) Chloride 95 mmol/L L mmol/L (101-111) Glucose 282 mg/dL H mg/dL (70-100) POC Whole Bld Glucose Calcium 7.5 mg/dL L mg/dL (8.5-10.3) Total Bilirubin 1.2 mg/dL H mg/dL (0.2-1.0) Alkaline Phosphatase 231 IU/L H IU/L (42-121) Total Protein 6.6 g/dL L g/dL (6.7-8.2) Albumin 2.1 g/dL L g/dL (3.2-5.5) Globulin 4.5 g/dL H g/dL (2.1-4.2) Albumin/Globulin Ratio 0.5 L (1.0-2.2) Triglycerides 1114 mg/dL H mg/dL ( - 149) Cholesterol 314 mg/dL H mg/dL ( - 199) HDL Cholesterol 10 mg/dL L mg/dL (60 - ) 01/04/17 01/04/17 01/04/17 07:35 11:25 17:01 WBC RBC Hgb Hct RDW Neut # Lymph # Neutrophils # (Manual) Lymphocytes # (Manual) VBG pH Ionized Calcium Sodium Chloride Glucose POC Whole Bld Glucose 280 mg/dL H mg/dL 339 mg/dL H mg/dL 354 mg/dL H mg/dL (70 - 100) (70 - 100) (70 - 100) Calcium Total Bilirubin Alkaline Phosphatase Total Protein Albumin Globulin Albumin/Globulin Ratio Triglycerides Cholesterol HDL Cholesterol 01/04/17 01/04/17 01/05/17 19:48 20:56 05:29 WBC RBC Hgb Hct RDW Neut # Lymph # Neutrophils # (Manual) Lymphocytes # (Manual) VBG pH Ionized Calcium Sodium 134 mmol/L L mmol/L (135-145) Chloride 98 mmol/L L mmol/L (101-111) Glucose 233 mg/dL H mg/dL (70-100) POC Whole Bld Glucose 356 mg/dL H mg/dL 293 mg/dL H mg/dL (70 - 100) (70 - 100) Calcium 7.5 mg/dL L mg/dL (8.5-10.3) Total Bilirubin Alkaline Phosphatase 195 IU/L H IU/L (42-121) Total Protein 6.1 g/dL L g/dL (6.7-8.2) Albumin 2.1 g/dL L g/dL (3.2-5.5) Globulin Albumin/Globulin Ratio 0.5 L (1.0-2.2) Triglycerides Cholesterol HDL Cholesterol 01/05/17 01/05/17 01/05/17 05:29 05:29 07:36 WBC 12.1 x10^3/uL H x10^3/uL (4.8-10.8) RBC 3.14 10^6/uL L 10^6/uL (4.20-5.40) Hgb 9.2 g/dL L g/dL (12.0-16.0) Hct 27.5 % L % (37.0-47.0) RDW 15.3 % H % (12.0-15.0) Neut # 10.4 10^3/uL H 10^3/uL (1.5-6.6) Lymph # 0.9 10^3/uL L 10^3/uL (1.5-3.5) Neutrophils # (Manual) Lymphocytes # (Manual) VBG pH 7.481 H (7.31-7.41) Ionized Calcium 0.99 mmol/L L mmol/L (1.15-1.33) Sodium Chloride Glucose POC Whole Bld Glucose 221 mg/dL H mg/dL (70 - 100) Calcium Total Bilirubin Alkaline Phosphatase Total Protein Albumin Globulin Albumin/Globulin Ratio Triglycerides Cholesterol HDL Cholesterol 01/05/17 11:10 WBC RBC Hgb Hct RDW Neut # Lymph # Neutrophils # (Manual) Lymphocytes # (Manual) VBG pH Ionized Calcium Sodium Chloride Glucose POC Whole Bld Glucose 245 mg/dL H mg/dL (70 - 100) Calcium Total Bilirubin Alkaline Phosphatase Total Protein Albumin Globulin Albumin/Globulin Ratio Triglycerides Cholesterol HDL Cholesterol - DIAGNOSTIC IMAGING Diagnostic Imaging Results: See rad report - FOLLOW UP Follow Up: Will have pt follow up with PCP for further care or return if pt worsens. Pt comfortable with plan. Pt counseled regarding expected course and signs and symptoms for which I believe an urgent re-evaluation would be necessary. Pt with good understanding and agreement to plan. Time spent with patient was 45 minutes for planning, education and assessment"
[2017-01-05 14:31] LABS: ANA SCREEN NEGATIVE (NEGATIVE)
[2017-01-09 15:51] LABS: LEAD (B) COLLECTION SAMPLE VENOUS (())
== END 2017-01-05 14:03 | disposition home or self-care (01) | DRG 193 ==
LOC: EDUNIT# → ED 14:23 → MS2 19:37
PROVIDERS: ADMIT Internal Medicine; ATTEND Nurse Practitioner
DX: J18.9 Pneumonia, unspecified organism (principal); I48.91 Unspecified atrial fibrillation; K85.90 Acute pancreatitis without necrosis or infection, unspecified; E87.1 Hypo-osmolality and hyponatremia; F32.9 Major depressive disorder, single episode, unspecified; E10.9 Type 1 diabetes mellitus without complications; Z79.4 Long term (current) use of insulin; F41.0 Panic disorder [episodic paroxysmal anxiety]; F43.10 Post-traumatic stress disorder, unspecified; Z86.73 Personal history of transient ischemic attack (TIA), and cerebral infarction without residual deficits; Z90.49 Acquired absence of other specified parts of digestive tract; Z90.710 Acquired absence of both cervix and uterus; M35.9 Systemic involvement of connective tissue, unspecified; K76.0 Fatty (change of) liver, not elsewhere classified; E10.65 Type 1 diabetes mellitus with hyperglycemia; I48.0 Paroxysmal atrial fibrillation; E78.5 Hyperlipidemia, unspecified; E66.01 Morbid (severe) obesity due to excess calories; Z91.5 Personal history of self-harm; Z81.8 Family history of other mental and behavioral disorders; K86.89 Other specified diseases of pancreas; Z91.19 Patient's noncompliance with other medical treatment and regimen; Z68.38 Body mass index [BMI] 38.0-38.9, adult
CPT/HCPCS: 36415; 71010; 71250; 74176; 74181; 76536; 76700; 80048; 80053; 80061; 80076; 81001; 81003; 82150; 82175; 82330; 82550; 82652; 82977; 83036; 83516; 83605; 83655; 83690; 83735; 83825; 83970; 84100; 84439; 84443; 84478; 84481; 84482; 85025; 85651; 86021; 86038; 86140; 86430; 86738; 87040; 87086; 94640; 96365; 96375; 99285